=== PATIENT | female | born 1945 | race Caucasian/White ===

== ENCOUNTER 2016-12-21 23:13 | Emergency (ER) | payer MEDICARE ==
[2016-12-21] MEDS ORDERED: NS 0.9% 1000 ML* 1,000 ML IV ONE (23:26)
[2016-12-21] MEDS ORDERED: Ondansetron INJ* 2 MG/ML VIAL IV ONE (23:26)
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
[2016-12-22 00:01] LABS: Albumin 4.2 g/dL (3.2-5.2); BUN/Creatinine Ratio 25.6 (8-20); C Reactive Protein 1.55 mg/L (< 5.00); Calcium 9.1 mg/dL (8.6-10.3); EGFR African American 79.2 (>60); EGFR Non-African American 61.5 (>60); Globulin 2.6 g/dL (2-4); Hematocrit 45 % (35-47); Magnesium 2.1 mg/dL (1.9-2.7); Mean Corpuscular HGB Conc 33 g/dl (31-36); Mean Corpuscular Hemoglobin 29 pg (27-31); Mean Corpuscular Volume 87 fL (80-97); Mean Platelet Volume 9 um3 (7.4-10.4); Potassium 3.8 mmol/L (3.5-5.0); Red Blood Count 5.19 10^6/ul (4.0-5.4); Red Cell Distribution Width 13 % (10.5-15); Total Bilirubin 0.7 mg/dL (0.2-1.0); Total Protein 6.8 g/dL (6.4-8.9); White Blood Count 8.8 10^3/ul (3.5-10.8)
[2016-12-22] MEDS ORDERED: Acetaminophen TAB* 325 MG PO ONE (00:54)
[2016-12-22] MEDS ORDERED: Ondansetron ODT TAB* 4 MG PO ONE (02:02)
[2016-12-22 02:56] VITALS: BP 142/68
== END 2016-12-22 02:57 | disposition home or self-care (01) ==
LOC: ED 23:13
DX: K52.9 Noninfective gastroenteritis and colitis, unspecified (principal); I25.119 Atherosclerotic heart disease of native coronary artery with unspecified angina pectoris; I10 Essential (primary) hypertension; Z95.5 Presence of coronary angioplasty implant and graft; J44.9 Chronic obstructive pulmonary disease, unspecified; E03.9 Hypothyroidism, unspecified
CPT/HCPCS: 36415; 80053; 83605; 83690; 83735; 85025; 86140; 93005; 96361; 96374; 99283; A9270-GY; J2405

== ENCOUNTER 2017-02-11 09:46 | Emergency (ER) | payer MEDICARE ==
--- NOTE | 2017-02-11 12:20 | RAD ---
INDICATION: Worsening knee pain COMPARISON: None TECHNIQUE: AP, lateral, tunnel, and sunrise views were obtained. FINDINGS: The bony structures, joint spaces, soft tissues are normal for age.. IMPRESSION: NO SIGNIFICANT PLAIN RADIOGRAPHIC FINDINGS.
[2017-02-11 12:24] VITALS: BP 142/80
--- NOTE | 2017-02-11 14:51 | UC ---
Knee Pain HPI - HPI Summary HPI Summary: ONE WEEK AGO, BIT THREE TIMES BY INSECT ON LEFT KNEE. HAS DEVELOPED REDNESS ON KNEE WELL TENDERNESS AND FATIGUE. - History of Current Complaint Chief Complaint: UCGeneralIllness Stated Complaint: RED AREA ON LEG NAUSEA RASH Time Seen by Provider: 02/11/17 11:12 Hx Obtained From: Patient Onset/Duration: Sudden Onset, Lasting Weeks, Still Present Severity Initially: Mild Severity Currently: Mild Pain Intensity: 2 Pain Scale Used: 0-10 Numeric Character: Dull, Aching Aggravating Factor(s): Movement, Weight Bearing Associated Signs And Symptoms: Positive: Redness Able to Bear Weight: Yes - Risk Factors Septic Arthritis Risk Factor: Negative Gout Risk Factor: Negative - Allergies/Home Medications Allergies/Adverse Reactions: Allergies Allergy/AdvReac Type Severity Reaction Status Date / Time Codeine AdvReac Intermediate Nausea And Verified 02/11/17 10:00 Vomiting Home Medications: Home Medications Tetrahydrozoline HCl (Ophth) [Eye Drops] 02/11/17 [History] PMH/Surg Hx/FS Hx/Imm Hx Previously Healthy: Yes - Surgical History Surgical History: Yes Surgery Procedure, Year, and Place: Back surgeries (3) W/RESIDUAL RIGHT WEAKNESS. Implant of epidural device for pain control-recent battery change 1 1 /2 yrs ago. CARDIAC CATH W/STENTS X 4 - Family History Known Family History: Positive: Cardiac Disease - Social History Occupation: Retired Lives: With Family Alcohol Use: Occasionally Substance Use Type: None Smoking Status (MU): Never Smoked Tobacco Have You Smoked in the Last Year: No - Immunization History Most Recent Influenza Vaccination: 04/2015 Most Recent Tetanus Shot: within 10 years Most Recent Pneumonia Vaccination: NEVER Review of Systems Constitutional: Negative Skin: Rash - LEFT KNEE Eyes: Negative ENT: Negative Respiratory: Negative Cardiovascular: Negative Gastrointestinal: Negative Genitourinary: Negative Motor: Negative Neurovascular: Negative Musculoskeletal: Arthralgia, Myalgia Neurological: Negative Psychological: Negative All Other Systems Reviewed And Are Negative: Yes Physical Exam Triage Information Reviewed: Yes Appearance: Well-Appearing, No Pain Distress, Well-Nourished Vital Signs: Initial Vital Signs Temp 98.1 F 02/11/17 10:02 Pulse 71 02/11/17 10:02 Resp 16 02/11/17 10:02 BP 156/106 02/11/17 10:02 Pulse Ox 98 02/11/17 10:02 Vital Signs Reviewed: Yes Eye Exam: Normal ENT Exam: Normal ENT: Positive: Normal ENT inspection, Hearing grossly normal, TMs normal Dental Exam: Normal Neck exam: Normal Neck: Positive: Supple, Nontender, No Lymphadenopathy Respiratory Exam: Normal Respiratory: Positive: Chest non-tender, Lungs clear, Normal breath sounds, No respiratory distress, No accessory muscle use Cardiovascular Exam: Normal Cardiovascular: Positive: RRR, No Murmur, Pulses Normal Abdominal Exam: Normal Musculoskeletal: Positive: Strength Intact, ROM Intact, No Edema, Other: - INSECT BITE AND WARMTH LEFT KNEE Neurological Exam: Normal Psychological Exam: Normal Skin Exam: Normal Knee Pain Course/Dx - Differential Dx/Diagnosis Differential Diagnosis/HQI/PQRI: Cellulitis, Gout, Infection, Sprain, Strain Provider Diagnoses: INSECT BITE LEFT KNEE; CELLULITIS LEFT KNEE Discharge - Discharge Plan Condition: Stable Disposition: HOME Prescriptions: Cephalexin CAP* [Keflex CAP*] 500 mg PO TID #21 cap Patient Education Materials: Cellulitis (ED), Insect Bite or Sting (ED), Knee Pain (ED), Arthralgia (ED) Referrals: Ольга Bullock MD [Primary Care Provider] -
== END 2017-02-11 12:45 | disposition home or self-care (01) ==
LOC: UCEAST 09:46
DX: S80.262A Insect bite (nonvenomous), left knee, initial encounter (principal); W57.XXXA Bitten or stung by nonvenomous insect and other nonvenomous arthropods, initial encounter; Y93.9 Activity, unspecified; Y92.9 Unspecified place or not applicable; Z88.5 Allergy status to narcotic agent
CPT/HCPCS: 99212; G0463

== ENCOUNTER 2017-12-25 23:45 | Inpatient (IN) | payer MEDICARE ==
[2017-12-25] MEDS ORDERED: Metoclopramide IV* 5 MG/ML 2 ML VIAL ONE (23:51)
[2017-12-25] MEDS ORDERED: Iohexol 350 (CONTRAST) 200 ML MDV IV ONE (23:54)
[2017-12-25] MEDS ORDERED: Clopidogrel TAB* 75 MG PO ONE (23:56)
[2017-12-25] MEDS ORDERED: Heparin for STEMI(*) 5,000 UNITS/ML 1 ML VIAL IV ONE (23:56)
[2017-12-25] MEDS ORDERED: Ticagrelor* 90 MG TAB PO ONE (23:56)
[2017-12-25] MEDS ORDERED: Morphine VIAL* 4 MG/ML VIAL (1 ml vial) IV PRN (23:56)
[2017-12-25] MEDS ORDERED: NS 0.9% 1000 ML* 1,000 ML IV ONE (23:58)
[2017-12-26] MEDS ORDERED: Amiodarone 360 MG IVPREMIX* 360 MG/200 ML BAG IV ONE ×2 (00:05→00:19)
[2017-12-26 00:08] LABS: ABS Basophils 0 10^3/ul (0-0.2); ABS Eosinophils 0.1 10^3/ul (0-0.6); ABS Lymphocytes 1.9 10^3/ul (1.0-4.8); ABS Monocytes 0.5 10^3/ul (0-0.8); ABS Neutrophils 4.1 10^3/ul (1.5-7.7); ABS Nucleated RBC 0 10^3/ul; Eosinophil % 1.1 % (0-6); Hematocrit 39 % (35-47); Hemoglobin 13.4 g/dl (12.0-16.0); Lymphocyte % 28.8 % (25-47); Mean Corpuscular HGB Conc 34 g/dl (31-36); Mean Corpuscular Hemoglobin 30 pg (27-31); Mean Corpuscular Volume 87 fL (80-97); Mean Platelet Volume 8.2 um3 (7.4-10.4); Nucleated Red Blood Cells % 0.1; Platelet Count 207 10^3/ul (150-450); Red Blood Count 4.49 10^6/ul (4.0-5.4); Red Cell Distribution Width 13 % (10.5-15); White Blood Count 6.7 10^3/ul (3.5-10.8)
[2017-12-26 00:17] LABS: INR 0.94 (0.77-1.02)
[2017-12-26 00:26] LABS: EGFR Non-African American 60.6 (>60)
[2017-12-26] MEDS ORDERED: Bivalirudin(*) 250 MG VIAL ONE (00:28)
[2017-12-26] MEDS ORDERED: Amiodarone IV VIAL* 3 ML ONE (00:35)
[2017-12-26] MEDS ORDERED: Norepinephrine 16MCG/ML IVPRE* 4,000 MCG/250 ML BAG IV ONE (00:38)
[2017-12-26] MEDS ORDERED: Eptifibatide IV (Load dose)(*) 2 MG/ML 10 ml VIAL ONE ×2 (00:56→01:13)
[2017-12-26] MEDS ORDERED: Iohexol 350 (CONTRAST) 200 ML MDV IV ONE (01:03)
[2017-12-26] MEDS ORDERED: Ondansetron INJ* 2 MG/ML VIAL ONE (01:17)
[2017-12-26] MEDS ORDERED: Eptifibatide (*) 100 ML ONE (01:22)
[2017-12-26] MEDS ORDERED: Nitroglycerin TAB 0.4 MG* 0.4 MG TAB SL PRN (01:46)
[2017-12-26] MEDS ORDERED: Eptifibatide Infusion @ 2 mcg/kg/min, max of 15 mg/hr (CrCl >/= 50) IV SCH (02:00)
[2017-12-26] MEDS: NS 0.9% 1000 ML* 1,000 ML IV SCH ×2 (02:15→09:25)
[2017-12-26] MEDS ORDERED: LORazepam INJ* 2 MG/ML 1 ML VIAL ONE (02:52)
[2017-12-26] MEDS ORDERED: LORazepam INJ* 2 MG/ML 1 ML VIAL IV PUSH ONE (03:00)
[2017-12-26 04:05] LABS: ABS Basophils 0.1 10^3/ul (0-0.2); ABS Eosinophils 0 10^3/ul (0-0.6); ABS Monocytes 0.8 10^3/ul (0-0.8); ABS Neutrophils 15.4 10^3/ul (1.5-7.7); ABS Nucleated RBC 0 10^3/ul; Eosinophil % 0.1 % (0-6); Hematocrit 42 % (35-47); Lymphocyte % 11.1 % (25-47); Mean Corpuscular HGB Conc 33 g/dl (31-36); Mean Corpuscular Hemoglobin 30 pg (27-31); Mean Corpuscular Volume 89 fL (80-97); Mean Platelet Volume 8.9 um3 (7.4-10.4); Nucleated Red Blood Cells % 0; Platelet Count 320 10^3/ul (150-450); Red Blood Count 4.72 10^6/ul (4.0-5.4); Red Cell Distribution Width 13 % (10.5-15); White Blood Count 18.3 10^3/ul (3.5-10.8)
[2017-12-26] MEDS ORDERED: Norepinephrine 16MCG/ML IVPRE* 4,000 MCG/250 ML BAG IV SCH (05:00)
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
[2017-12-26 06:48] LABS: ABS Basophils 0 10^3/ul (0-0.2); ABS Eosinophils 0 10^3/ul (0-0.6); ABS Lymphocytes 1.1 10^3/ul (1.0-4.8); ABS Monocytes 0.7 10^3/ul (0-0.8); ABS Neutrophils 9.6 10^3/ul (1.5-7.7); ABS Nucleated RBC 0 10^3/ul; Eosinophil % 0.1 % (0-6); Hematocrit 40 % (35-47); Hemoglobin 13.9 g/dl (12.0-16.0); Mean Corpuscular HGB Conc 35 g/dl (31-36); Mean Corpuscular Hemoglobin 30 pg (27-31); Mean Corpuscular Volume 87 fL (80-97); Mean Platelet Volume 8.7 um3 (7.4-10.4); Nucleated Red Blood Cells % 0.1; Platelet Count 316 10^3/ul (150-450); Red Blood Count 4.59 10^6/ul (4.0-5.4); Red Cell Distribution Width 13 % (10.5-15); White Blood Count 11.5 10^3/ul (3.5-10.8)
[2017-12-26] MEDS ORDERED: Amiodarone 360 MG IVPREMIX* 360 MG/200 ML BAG IV SCH ×2 (07:00→16:00)
[2017-12-26 07:06] LABS: EGFR Non-African American 69.3 (>60)
[2017-12-26] MEDS ORDERED: fentaNYL* 50 MCG/ML 2 ML VIAL (100 MCG VIAL) IV SLOW PU PRN (08:57)
[2017-12-26] MEDS ORDERED: Eptifibatide (*) 100 ML IV SCH (09:00)
[2017-12-26] MEDS ORDERED: fentaNYL* 50 MCG/ML 2 ML VIAL (100 MCG VIAL) ONE (09:14)
[2017-12-26] MEDS: Ticagrelor* 90 MG TAB PO SCH ×2 (09:20→21:05)
[2017-12-26] MEDS: Aspirin 81 mg CHEW TAB* 81 MG TAB.CHEW PO SCH (09:21)
[2017-12-26] MEDS: Famotidine TAB* 20 MG PO SCH ×2 (09:21→21:05)
--- NOTE | 2017-12-26 09:37 | RAD ---
Indication: Chest pain. Single frontal view of the chest performed at 0910 hours was reviewed. Comparison is made with previous exam dated May 09, 2015. No mediastinal shift is noted. Heart is of normal size and configuration. Lung fallon appear clear. IMPRESSION: NO ACTIVE CARDIOPULMONARY DISEASE IS NOTED.
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
--- NOTE | 2017-12-26 11:48 | HP ---
CC: Dr. Jose Maria Contreras; Dr. Ольга Bullock HISTORY AND PHYSICAL: DATE OF ADMISSION: 12/26/17 CHIEF COMPLAINT: Severe chest discomfort with EKG demonstrating ST-segment elevation and anterior wa ll myocardial infarction. HISTORY OF PRESENT ILLNESS: The patient is a 72-year-old female with a known history in the past of coronary artery disease, status post stent placement in the proximal to mid right coronary artery as well as the first diagonal branch in the mid proximal LAD. She has a history of essential hypertensi on and hyperlipidemia. She was in her usual state of health until the day of admission when she was o ut dancing and developed the onset of severe chest discomfort and collapse. She reportedly did not l ose consciousness, although we do not have complete details. EMS arrival revealed ST-segment elevatio n, anterior wall myocardial infarction with reciprocal ST segment depression, inferior apically and a s such this was called to [facility] and alerted. On arrival in the emergency room, she w as still having severe chest discomfort. She was mildly lethargic in nature, but answered questions appropriately and was able to move all extremities appropriately. She was given heparin 4000 units, had already received full dose aspirin therapy and received 180 mg of Brilinta. She suffered a V-fib arrest in the emergency room for which she had very transient CPR and was shocked back to normal sin us rhythm. She became more alert and we had already explained the risks and benefits prior to her V- fib arrest, she had agreed to proceed and family was present and they understood and agreed too. As such, she was taken to the cardiovascular laboratory after a bolus of IV amiodarone was given and an 1 mg amiodarone drip per minute was started. PAST MEDICAL HISTORY: Significant for coronary artery disease as described above, essential hyperten all. Past medical history included gastroesophageal reflux, history of glaucoma, depression, hyperl ipidemia, chronic back pain for which she has an implanted stimulator and questionable history of hyp othyroidism. PAST SURGICAL HISTORY: Significant for back surgery. FAMILY HISTORY: Mother with a history reportedly in the past of COPD. Father was an alcoholic with cirrhosis and of a heart attack. SOCIAL HISTORY: She is a nonsmoker and occasionally drinks alcohol. She had 1 beer tonight when she was dancing. REVIEW OF SYSTEMS: Pertinent to proceeding to the cardiovascular laboratory. The patient has no doc umented history of stroke. The patient has no history of renal insufficiency. The patient has no he matochezia, hematemesis, or hematuria and no dye allergy. PHYSICAL EXAMINATION GENERAL: When I see her in the emergency room reveals an anxious female, in acute distress with sign ificant chest discomfort. VITAL SIGNS: Reveals blood pressure 118/77 with a pulse of 80, respirations 22, O2 saturation 97%. HEENT: Conjunctivae were pink. Sclerae clear. Mouth reveals somewhat dry mucosa from her mouth mary grace athing. NECK: Supple. No obvious increased JVP. Carotid with fair upstroke in volume. I cannot definitive ly appreciate any bruits, although it is difficult to hear in the emergency room. LUNGS: Reveals no accessory muscle usage anterior and laterally. The lung sounds are clear. HEART: Reveals a regular rate and rhythm with no significant murmur. ABDOMEN: Soft and nontender. EXTREMITIES: Without edema. Peripheral pulses are intact. Femoral pulses present without bruits. NEUROLOGIC: The patient is slightly lethargic, but does respond appropriately and does answer questi ons and moves all extremities to command with no focal abnormalities. PSYCHIATRIC: The patient with appropriate affect. DIAGNOSTIC STUDIES/LAB DATA: Laboratory results are pending. EKG from the emergency room time 2355 on 12/25/17 shows sinus rhythm, heart rate 85, CT interval is 0 .14, QRS is 0.09, QT 0.38, axis is -[address]- segment elevation in aVL, V1, V2, and s omewhat in V3 with reciprocal changes of ST segment depression in II, III, aVF of significance. OVERALL ASSESSMENT: Lis now presents in the throes of an acute ST-segment elevation anterior wall myocardial infarction. At this point in time, she had suffered ventricular fibrillation arrest and is on IV amiodarone. The risks and benefits were explained prior to proceeding to the cardiovascular laboratory and she and her family wished to proceed. She has already received 4000 units of heparin , 180 mg of Brilinta and aspirin full dose. Further management will be made pending results in the c ardiovascular laboratory. [id number]/[facility] #: [id number]
[2017-12-26] MEDS: fentaNYL* 50 MCG/ML 2 ML VIAL (100 MCG VIAL) IV SLOW PU PRN ×2 (12:55→18:13)
[2017-12-26] MEDS ORDERED: Heparin VIAL(*) 5000 UNITS/ML VIAL (FIVE THOUSAND) SUBCUT SCH (14:00)
--- NOTE | 2017-12-26 15:13 | CATH ---
CC: Dr. Jose Maria Contreras; Dr. Ольга Bullock, [facility] CARDIAC CATHETERIZATION AND INTERVENTIONAL REPORT: DATE OF PROCEDURE: 12/26/17 PROCEDURE PERFORMED: Coronary arteriography, thrombectomy, balloon angioplasty and placement of a 2.25 x 24 mm long Synergy drug-eluting stent in mid LAD, postdilated to 2.65 in the mid proximal stented area, left heart catheterization. The patient was interviewed and examined in the emergency room where the risks and benefits were explained. She understood them and wished to proceed. The patient received aspirin prior to arrival by the emergency medical services, she received 180 mg of Brilinta in the emergency room, 4000 units of heparin peripherally. APPROACH: Right femoral artery. EQUIPMENT UTILIZED: 1. Arterial sheath - 6.5-St Helenian Merit Prelude sheath. 2. Diagnostic right coronary catheter, a 5-St Helenian AL1 curve right coronary catheter, left coronary arteriography with a 6-St Helenian CLS3 curve. 3. Interventional wires, multiple 190 length All Star guidewires. 4. Thrombectomy catheter, a 6-St Helenian Pronto V4 extraction catheter. 5. Balloon angioplasty catheter to mid LAD at 2.0 x 50 mm long Emerge balloon. 6. Stent utilized a 2.25 x 24 mm long Synergy drug-eluting stent with post deployment balloon inflations with a 2.5 x 12 mm long NC Emerge balloon. CLOSURE DEVICE: A 6/7-St Helenian Mynx closure device. DESCRIPTION OF PROCEDURE: She was taken to the cardiovascular laboratory where a formal time-out was performed. She was prepped and draped in a sterile fashion. The right coronary was anesthetized with 1% lidocaine. The right femoral artery was cannulated and a 6-St Helenian introducer was placed. Diagnostic coronary arteriography was performed. Following this, the decision was made to intervene into the LAD system. An ACT was checked and found to be subtherapeutic as such an Angiomax bolus was given and Angiomax drip was started. Extraction atherectomy was performed with multiple passes followed by balloon angioplasty to the mid LAD. Of note, a second guidewire was advanced into the diagonal branch through the stent. Of note, during the catheterization the patient developed ventricular tachycardia sustained and she was successfully shocked with 200 joules. An additional 150 mg amiodarone bolus was given (she was already on an amiodarone 1 mg drip and had gotten 150 mg bolus in the emergency room). The patient was treated also with Levophed boluses and a Levophed drip was given for hypotension. Stent placement was performed followed by further extraction atherectomy, two Integrilin boluses 10 minutes apart were given and an Integrilin drip was started and the Angiomax drip was stopped. Post stent deployment balloon inflations were made. Following this, left heart catheterization was performed utilizing a 5-St Helenian angled pigtail catheter. The catheter was then pulled back across the aortic valve to recheck gradient. At the end of the case, injection was made into the right femoral sheath to assess the eligibility to utilize closure device. It was found to be acceptable for this and as such a [address] Helenian Mynx closure device was deployed with good hemostasis. The patient was transported to the intensive care unit in stable condition. The total contrast used was 200 cc of Omnipaque dye. The radiation exposure included 17.2 minutes of fluoro time, the air kerma radiation was 1020 mGy, the DAP radiation was 5549 microgray per meter squared. RESULTS: HEMODYNAMIC DATA: Left heart catheterization: Central aortic pressure recorded at 101/59 with a mean of 77, left ventricular pressure 96/left ventricular end- diastolic pressure of 17. CORONARY ARTERIOGRAPHY: A. Right coronary artery - a dominant vessel supplying a bifurcating PDA. There were several acute marginal branches as well. The prior stented areas were found to be widely patent with no evidence of significant in-stent restenosis. B. Left coronary artery: 1. Left main widely patent. 2. Left anterior descending artery. The proximal portion of the left anterior descending artery appeared to have thrombus in it and there appeared to be some haziness in the very ostium of the diagonal branch. The LAD was found to be totally occluded after the second septal school psychological examiner. 3. Circumflex artery - a nondominant vessel supplying a thin first obtuse marginal branch followed by bifurcating second obtuse marginal branch. Past this point, it continued to supply a moderate sized low lying obtuse marginal branch followed by a bifurcating shorter last obtuse marginal branch. Of note, there was an area of narrowing noted before the last low lying obtuse marginal branch which appeared to be as much as 50% to 55%. INTERVENTION INTO THE MID LAD: Successful thrombectomy balloon angioplasty and placement of a 2.25 x 24 mm Synergy drug-eluting stent postdilated with a 2.5 mm NC Emerge balloon to achieve 2.65 mm with MONICA-3 flow, no dissection seen. Of note, the distal vessel appeared to have diffuse disease in it and was small in caliber. It did not extend fully to the apical region. The prior extensive thrombus and burden present on the initial images was no longer present with mild thrombus in the proximal portion. OVERALL ASSESSMENT: Successful reconstitution of totally occluded LAD with balloon angioplasty and placement of a 2.25 x 24 mm long Synergy drug-eluting stent dilated to high pressure to obtain 2.65 mm. Extensive thrombus burden treated with thrombectomy as well as double bolus Integrilin with an Integrilin drip started to be continued for 8 to 12 hours with platelets being checked within an hour to an hour and a half after starting the drip. For now, the patient will be maintained on the Levophed and it will be weaned as can be achieved once the patient gets to the intensive care unit. Of note, a Garcia catheter was placed for more accurate urine output. Dual antiplatelet therapy is mandatory for most likely 30 months at minimum. Consideration for possible repeat cardiac catheterization during this hospitalization to assess the most proximal portion of the LAD and to make sure there has been a resolution of any thrombus left may be appropriate. We will decide that through the course of hospitalization. An echocardiogram will be obtained for LV function within the next 24-48 hours. The patient's cardiac enzymes will be cycled. Aggressive risk factor management will continue and for now the IV amiodarone will be continued and eventually weaned off once rhythm is stabilized. It should be noted the patient developed atrial fibrillation during the cardiac catheterization after she was defibrillated for her ventricular tachycardia. Hopefully, she will spontaneously convert back to sinus rhythm now that her ischemia has been improved. [id number]/[facility] #: [id number] [facility]
[2017-12-26] MEDS: Heparin VIAL(*) 5000 UNITS/ML VIAL (FIVE THOUSAND) SUBCUT SCH ×2 (16:06→21:07)
[2017-12-26] MEDS: Atorvastatin* 20 MG TAB PO SCH (17:42)
[2017-12-26] MEDS ORDERED: Ondansetron INJ* 2 MG/ML SYRINGE (from 40/20 VIAL) IV ONE (19:15)
[2017-12-26] MEDS ORDERED: Ondansetron INJ* 2 MG/ML VIAL IV SCH (20:00)
[2017-12-26] MEDS ORDERED: Ondansetron INJ* 2 MG/ML SYRINGE (from 40/20 VIAL) IV SCH (20:00)
[2017-12-26] MEDS: DORZOLAMIDE BOTH EYES SCH (21:07)
[2017-12-26] MEDS: Acetaminophen TAB* 325 MG PO PRN (21:07)
[2017-12-26] MEDS: LATANOPROST 0.005% LEFT EYE SCH (21:07)
[2017-12-26] MEDS: TIMOLOL OPTH BOTH EYES SCH (21:07)
[2017-12-26] MEDS ORDERED: Ondansetron INJ* 2 MG/ML SYRINGE (from 40/20 VIAL) IV PRN (23:44)
[2017-12-27] MEDS: Acetaminophen TAB* 325 MG PO PRN ×3 (04:52→20:47)
[2017-12-27] MEDS: Heparin VIAL(*) 5000 UNITS/ML VIAL (FIVE THOUSAND) SUBCUT SCH ×3 (05:02→20:50)
[2017-12-27 05:26] LABS: ABS Basophils 0 10^3/ul (0-0.2); ABS Eosinophils 0 10^3/ul (0-0.6); ABS Lymphocytes 1.3 10^3/ul (1.0-4.8); ABS Monocytes 0.4 10^3/ul (0-0.8); ABS Neutrophils 5.1 10^3/ul (1.5-7.7); ABS Nucleated RBC 0 10^3/ul; Eosinophil % 0.5 % (0-6); Hematocrit 36 % (35-47); Hemoglobin 12.3 g/dl (12.0-16.0); Lymphocyte % 18.8 % (25-47); Mean Corpuscular HGB Conc 35 g/dl (31-36); Mean Corpuscular Hemoglobin 30 pg (27-31); Mean Corpuscular Volume 88 fL (80-97); Mean Platelet Volume 8.8 um3 (7.4-10.4); Nucleated Red Blood Cells % 0; Platelet Count 179 10^3/ul (150-450); Red Blood Count 4.05 10^6/ul (4.0-5.4); Red Cell Distribution Width 13 % (10.5-15); White Blood Count 6.9 10^3/ul (3.5-10.8)
[2017-12-27 05:38] LABS: EGFR Non-African American 78.1 (>60)
[2017-12-27] MEDS: Sertraline* 50 MG TAB PO SCH (08:14)
[2017-12-27] MEDS: Aspirin 81 mg CHEW TAB* 81 MG TAB.CHEW PO SCH (08:14)
[2017-12-27] MEDS: Ticagrelor* 90 MG TAB PO SCH ×2 (08:14→20:49)
[2017-12-27] MEDS: Famotidine TAB* 20 MG PO SCH ×2 (08:14→20:49)
[2017-12-27] MEDS: LATANOPROST 0.005% LEFT EYE SCH ×2 (08:15→20:50)
--- NOTE | 2017-12-27 08:27 | PN ---
Progress Note - Progress Note Date of Service: 12/27/17 - [facility] f/u note Note: Pt seen and examined at bedside. Pt reports feeling better this am. Numbness of hands is improved. Denies N, V, had episode of nausea and vomiting when she stood up yesterday. Soreness in chest is improved, also has tenderness in neck area posteriorly. Active Medications Generic Name Dose Route Start Last Admin Trade Name Freq PRN Reason Stop Dose Admin Acetaminophen 650 mg 12/26/17 19:57 12/27/17 04:52 Tylenol Tab* PO 650 mg Q6H PRN Administration PAIN - MILD Aspirin 81 mg 12/26/17 09:00 12/27/17 08:14 Aspirin 81 Mg Chew Tab* PO 81 mg DAILY NNAMDI Administration Atorvastatin Calcium 20 mg 12/26/17 17:00 12/26/17 17:42 Lipitor* PO 20 mg 1700 NNAMDI Administration Dorzolamide/Timolol 1 drop 12/26/17 21:00 12/26/17 21:07 Cosopt (Nf) BOTH EYES 1 drop BEDTIME NNAMDI Administration Famotidine 20 mg 12/26/17 09:00 12/27/17 08:14 Pepcid Tab* PO 20 mg BID NNAMDI Administration Fentanyl Citrate 25 mcg 12/26/17 12:24 12/26/17 18:13 Fentanyl* IV SLOW PU 25 mcg Q4H PRN Administration PAIN - CHEST Heparin Sodium (Porcine) 5,000 units 12/26/17 14:00 12/27/17 05:02 Heparin Vial(*) SUBCUT 5,000 units Q8HR NNAMDI Administration Latanoprost 1 drop 12/26/17 21:00 12/27/17 08:15 Xalatan 0.005%* LEFT EYE 1 drop BID NNAMDI Administration Nitroglycerin 0.4 mg 12/26/17 01:46 Nitroglycerin Tab 0.4 Mg* SL Q5M PRN ANGINA Sertraline HCl 50 mg 12/27/17 09:00 12/27/17 08:14 Zoloft* PO 50 mg DAILY NNAMDI Administration Ticagrelor 90 mg 12/26/17 09:00 12/27/17 08:14 Brilinta* PO 90 mg BID NNAMDI Administration Vital Signs Temp Pulse Resp BP Pulse Ox 98 F 67 16 91/51 91 12/27/17 03:58 12/27/17 08:00 12/27/17 08:00 12/27/17 08:00 12/27/17 08:00 O/E: Pt in NAD, alert, awake HEENT: PERRLA, No JVD, mild tenderness in cervical area posteriorly Lungs: diminished air entry at bases, tenderness to palpation ant chest CVS: S1, S2+, regular, peripheral pulses 2+ b/l Abd: Soft, BS+ Ext: Normal ROM, mild weakness of rt LE, unchanged Neuro: Alert, awake, oriented X3, no focal defects Laboratory Results - last 24 hr 12/26/17 12/26/17 12/26/17 12:00 12:00 18:43 WBC RBC Hgb Hct MCV MCH MCHC RDW Plt Count MPV Neut % (Auto) Lymph % (Auto) Cross % (Auto) Eos % (Auto) Baso % (Auto) Absolute Neuts (auto) Absolute Lymphs (auto) Absolute Monos (auto) Absolute Eos (auto) Absolute Basos (auto) Absolute Nucleated RBC Nucleated RBC % Sodium Potassium Chloride Carbon Dioxide Anion Gap BUN Creatinine Est GFR ( Amer) Est GFR (Non-Af Amer) BUN/Creatinine Ratio Glucose Lactic Acid 2.7 H* Calcium Total Bilirubin AST ALT Alkaline Phosphatase Total Creatine Kinase 598 H 705 H CK-MB (CK-2) 54.3 H 66.1 H Troponin I 2.20 H* 3.64 H* Total Protein Albumin Globulin Albumin/Globulin Ratio 12/27/17 12/27/17 05:07 05:07 WBC 6.9 RBC 4.05 Hgb 12.3 Hct 36 MCV 88 MCH 30 MCHC 35 RDW 13 Plt Count 179 MPV 8.8 Neut % (Auto) 74.6 Lymph % (Auto) 18.8 L Cross % (Auto) 5.7 Eos % (Auto) 0.5 Baso % (Auto) 0.4 Absolute Neuts (auto) 5.1 Absolute Lymphs (auto) 1.3 Absolute Monos (auto) 0.4 Absolute Eos (auto) 0 Absolute Basos (auto) 0 Absolute Nucleated RBC 0 Nucleated RBC % 0 Sodium 139 Potassium 3.8 Chloride 110 Carbon Dioxide 23 Anion Gap 6 BUN 8 Creatinine 0.73 Est GFR ( Amer) 100.5 Est GFR (Non-Af Amer) 78.1 BUN/Creatinine Ratio 11.0 Glucose 117 H Lactic Acid Calcium 8.4 L Total Bilirubin 0.70 AST 60 H ALT 51 Alkaline Phosphatase 43 Total Creatine Kinase 520 H CK-MB (CK-2) 36.3 H Troponin I 4.01 H* Total Protein 5.4 L Albumin 3.3 Globulin 2.1 Albumin/Globulin Ratio 1.6 I/R: 72 y o f a/w STEMI s/p stent placement to LAD, significant thrombus, required CPR briefly, and defibrillaton, cardiogenic shock requiring Levophed, has been off since yesterday afternoon. Pt with tingling, numbness and episode of blurry vision and vomiting yesterday when she stood up, quickly resolved. Had c/o blurry vision this morning sitting up, improved Chest soreness is better, no chest pain or diaphoresis BP higher sitting up around 140 systolic No headaches, reports decreased appetite Hemodynamically stable, off O2, on RA Will hold off on neuro imaging for now. Will reassess neurological status in few hrs. Will f/u ECHO results Fentanyl d/jocelyn, c/w tylenol prn for pain D/C Garcia OOB to chair, ambulate as tolerated D/w Dr Vaca
--- NOTE | 2017-12-27 12:22 | RAD ---
Indication: Evaluate for stroke. CT of the brain was performed without IV contrast. Ventricular structures are midline. No midline shift is noted. The extra-axial spaces are unremarkable. There is no evidence of intracranial mass or hemorrhage. No other high or low density lesions are identified. Some calcifications are noted in the basal ganglia which are unchanged from previous exam. Mastoid air cells and paranasal sinuses are otherwise unremarkable. IMPRESSION: No intracranial mass or hemorrhage is noted.
[2017-12-27] MEDS ORDERED: Iohexol 350* (CONTRAST) 500 ML MDV IV ONE (12:31)
--- NOTE | 2017-12-27 12:54 | RAD ---
Indication: Evaluate for posterior circulation stroke. Contrast: Administered 80.0 ml of Contrast -- mg/ml The origins of the great vessel are unremarkable. Minimal calcific plaque is noted at the left subclavian artery regurgitation. The common carotid arteries bilaterally are normal in caliber and symmetric. No atherosclerosis is noted. The internal carotid arteries bilaterally appear widely patent. No evidence of branch occlusion is identified. No evidence of carotid artery dissection is noted. The vertebral artery origins are grossly unremarkable. They are fairly symmetric in size and caliber. No calcification is noted. Normal flow is noted in both vertebral arteries. The intracranial circulation demonstrates the intracavernous portions of the carotid arteries to be unremarkable with no aneurysmal dilatation or plaque. Normal bifurcation into A1 and M1 segments of the anterior circulation is noted. No aneurysmal dilatation or branch occlusion is identified. The posterior circulation demonstrates a patent basilar artery. The posterior cerebral arteries appears to be supplied by the posterior communicating artery bilaterally. The basilar artery bifurcates into small branches. No branch occlusion is noted. No aneurysmal dilatation is noted. No evidence of abnormal density is noted. Soft tissues of the neck are grossly unremarkable. Degenerative disc disease of the cervical spine is noted. IMPRESSION: Common carotid arteries and vertebral arteries are patent with no evidence of stenosis or dissection. Intracranial circulation demonstrates no branch occlusion. No aneurysmal dilatation is noted. Posterior cerebral artery appears to be predominantly supplied by posterior communicating arteries bilaterally.
[2017-12-27] MEDS ORDERED: NS 0.9% 1000 ML* 1,000 ML IV SCH (13:30)
--- NOTE | 2017-12-27 13:54 | ECHO ---
Patient: EBER BOYKIN [facility] Rec#: [id number] : 1945 Date: 12/27/2017 Age: 72y Height: 157.48 cm / 62.0 in Weight: 63.96 kg / 141.0 lbs Sex: F BSA: 1.65 Room#: ICU-3 Admit Date#: 12/26/2017 Type: Inpatient Referring: Renan Cole MD Reading: Ubaldo Cortez MD Lunchroom Attendant: Iza Kat RDCS CC: Ольга Bullock MD Transthoracic Echocardiogram Indication: S/P PCI, STEMI BP: 108/76 HR: 71 Rhythm: NSR Findings History: Anterior wall HI, s/p STEMI and PCI 12/26/17, CAD, HTN, HLD. Technical Comments: The study quality is fair. Completed at 0930. Left Ventricle: The left ventricular chamber size is normal. Mild concentric left ventricular hypertrophy is observed. Left ventricular systolic function is at the lower limits of normal. The estimated ejection fraction is 50-55%. with mild mid-distal anterior septal and most distal anterior wall hypokinesis. Abnormal left ventricular diastolic function is observed. There is an E to A reversal in the mitral valve flow pattern suggestive of diastolic dysfunction. Left Atrium: The left atrial chamber size is normal. Right Ventricle: Moderator Band present. The right ventricular cavity size is normal. The right ventricular global systolic function is normal. Right Atrium: The right atrial cavity size is normal. Aortic Valve: The aortic valve is trileaflet. The aortic valve leaflets are mildly thickened. There is a trace of aortic regurgitation. There is no evidence of aortic stenosis. Mitral Valve: The mitral valve leaflets are mildly thickened. There is trace to mild mitral regurgitation. There is no evidence of mitral stenosis. Tricuspid Valve: The tricuspid valve leaflets are normal. There is trace to mild tricuspid regurgitation. The right ventricular systolic pressure is estimated at 35 mmHg. There is evidence of borderline pulmonary hypertension. There is no tricuspid stenosis. Pulmonic Valve: The pulmonic valve appears normal. There is no evidence of pulmonic regurgitation. There is no pulmonic stenosis. Pericardium: There is no significant pericardial effusion. Aorta: There is no dilatation of the ascending aorta. There is no dilatation of the aortic arch. The aortic root is normal in size. Pulmonary Artery: The main pulmonary artery is not well visualized. Venous: The inferior vena cava appears normal in size. There is an approximate 50% respiratory change in the inferior vena cava dimension. Summary: There are changes noted when compared to the previous study done on 07/13/2013, the wall motion abnormality are new. Conclusions The left ventricular chamber size is normal. Mild concentric left ventricular hypertrophy is observed. The estimated ejection fraction is 50-55%. with mild mid-distal anterior septal and most distal anterior wall hypokinesis. Abnormal left ventricular diastolic function is observed. There is an E to A reversal in the mitral valve flow pattern suggestive of diastolic dysfunction. There is a trace of aortic regurgitation. There is trace to mild mitral regurgitation. There is trace to mild tricuspid regurgitation. There is evidence of borderline pulmonary hypertension. There are changes noted when compared to the previous study done on 07/13/2013, the wall motion abnormality are new. Measurements Name Value Normal Range RVIDd (AP) 2D 3 cm (0.9 - 2.6) RVDdMajor (2D) 3.3 cm (2.2 - 4.4) RAd ISD 4CH 4.3 cm (3.4 - 4.9) RA (A4C)W 3.8 cm (2.9 - 4.6) IVSd (2D) 1.2 cm (0.6 - 1) LVPWd (2D) 1.2 cm (0.6 - 1) LVIDd (2D) 3.6 cm (3.6 - 5.4) LVIDs (2D) 2.4 cm - LV FS (2D) 35 % (25 - 45) Aortic Annulus 2.1 cm (1.4 - 2.6) Ao root diameter (2D) 2.9 cm (2.1 - 3.5) Ascending Ao 3.3 cm (2.1 - 3.4) Aortic arch 2.6 cm (1.8 - 3.4) LA dimension (AP) 2D 2.9 cm (2.3 - 3.8) LAd ISD 4CH 4.7 cm (2.9 - 5.3) LA ISD 4CH W 3.5 cm (2.5 - 4.5) Name Value Normal Range LA ESV SP 4CH (A/L) 40 ml - LA ESV SP 2CH (A/L) 56 ml - LA ESV BP (A/L) 48 ml - LA ESV BP (A/L) index 29 ml/m2 - LA ESV SP 4CH (MOD) 37 ml - LA ESV SP 2CH (MOD) 53 ml - Name Value Normal Range MV E-wave Vmax 0.58 m/sec - MV deceleration time 254.9 msec - MV A-wave Vmax 0.7 m/sec - MV E:A ratio 0.8 ratio - LV septal e' Vmax 0.07 m/sec - LV lateral e' Vmax 0.07 m/sec - LV E:e' septal ratio 8.29 ratio - LV E:e' lateral ratio 8.29 ratio - Name Value Normal Range AV Vmax 1.24 m/sec - AV VTI 28.5 cm - AV peak gradient 6.17 mmHg - AV mean gradient 3.56 mmHg - LVOT Vmax 1.1 m/sec - LVOT VTI 24.5 cm - LVOT peak gradient 4.86 mmHg - LVOT mean gradient 2.66 mmHg - WILBERT Vmax 0.8 m/sec - Name Value Normal Range TR Vmax 2.6 m/sec - TR peak gradient 27 mmHg - RAP 8 mmHg - RVSP 35 mmHg - IVC diameter 2.03 cm - Name Value Normal Range PV Vmax 0.62 m/sec - PV peak gradient 1.54 mmHg -
[2017-12-27] MEDS ORDERED: Captopril TAB* 12.5 MG PO SCH (14:00)
[2017-12-27] MEDS: Atorvastatin* 20 MG TAB PO SCH (18:32)
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
[2017-12-27] MEDS: DORZOLAMIDE BOTH EYES SCH (20:49)
[2017-12-27] MEDS: TIMOLOL OPTH BOTH EYES SCH (20:49)
[2017-12-28] MEDS: Acetaminophen TAB* 325 MG PO PRN ×3 (02:33→19:30)
[2017-12-28] MEDS: Heparin VIAL(*) 5000 UNITS/ML VIAL (FIVE THOUSAND) SUBCUT SCH ×3 (05:36→21:17)
[2017-12-28 06:19] LABS: EGFR Non-African American 72.4 (>60)
[2017-12-28] MEDS: Ticagrelor* 90 MG TAB PO SCH ×2 (07:54→21:17)
[2017-12-28] MEDS: Famotidine TAB* 20 MG PO SCH ×2 (07:54→21:16)
[2017-12-28] MEDS: Sertraline* 50 MG TAB PO SCH (07:55)
[2017-12-28] MEDS: Aspirin 81 mg CHEW TAB* 81 MG TAB.CHEW PO SCH (07:56)
[2017-12-28] MEDS: LATANOPROST 0.005% LEFT EYE SCH ×2 (07:56→21:17)
--- NOTE | 2017-12-28 08:22 | PN ---
Progress Note - Progress Note Date of Service: 12/28/17 - [facility] f/u note Note: Pt seen and examined at bedside, reports feelig better, still has soreness in chest. ''Sea sickness'' feeling and blurry vision have improved. Has not been feeling dizzi when she stands up. Active Medications Generic Name Dose Route Start Last Admin Trade Name Freq PRN Reason Stop Dose Admin Acetaminophen 650 mg 12/26/17 19:57 12/28/17 02:33 Tylenol Tab* PO 650 mg Q6H PRN Administration PAIN - MILD Aspirin 81 mg 12/26/17 09:00 12/28/17 07:56 Aspirin 81 Mg Chew Tab* PO 81 mg DAILY NNAMDI Administration Atorvastatin Calcium 20 mg 12/26/17 17:00 12/27/17 18:32 Lipitor* PO 20 mg 1700 NNAMDI Administration Dorzolamide/Timolol 1 drop 12/26/17 21:00 12/27/17 20:49 Cosopt (Nf) BOTH EYES 1 drop BEDTIME NNAMDI Administration Famotidine 20 mg 12/26/17 09:00 12/28/17 07:54 Pepcid Tab* PO 20 mg BID NNAMDI Administration Heparin Sodium (Porcine) 5,000 units 12/26/17 14:00 12/28/17 05:36 Heparin Vial(*) SUBCUT 5,000 units Q8HR NNAMDI Administration Latanoprost 1 drop 12/26/17 21:00 12/28/17 07:56 Xalatan 0.005%* LEFT EYE 1 drop BID NNAMDI Administration Nitroglycerin 0.4 mg 12/26/17 01:46 Nitroglycerin Tab 0.4 Mg* SL Q5M PRN ANGINA Sertraline HCl 50 mg 12/27/17 09:00 12/28/17 07:55 Zoloft* PO 50 mg DAILY NNAMDI Administration Ticagrelor 90 mg 12/26/17 09:00 12/28/17 07:54 Brilinta* PO 90 mg BID NNAMDI Administration Vital Signs Temp Pulse Resp BP Pulse Ox 98.6 F 60 16 118/76 95 12/28/17 07:17 12/28/17 07:00 12/28/17 08:00 12/28/17 07:00 12/28/17 07:00 O/E: Pleasant elderly female in NAD HEENT: PERRLA, No JVD, lt eye mild ptosis Lungs: Clear to auscultation b/l CVS: S1, S2+, regular Abd: Soft, BS+ Ext: No edema Skin: no rash Neuro: No focal defecits Laboratory Results - last 24 hr 12/27/17 12/28/17 09:25 05:44 Sodium 140 Potassium TNP Chloride 112 H Carbon Dioxide 24 Anion Gap 4 BUN 7 Creatinine 0.78 Est GFR ( Amer) 93.1 Est GFR (Non-Af Amer) 72.4 BUN/Creatinine Ratio 9.0 Glucose 97 Calcium 8.1 L TSH 4.40 Free T4 0.74 Free T3 2.40 L I/R: 72 y o f a/w STEMI s/p stent placement to LAD, significant thrombus, required CPR briefly, and defibrillaton, cardiogenic shock requiring Levophed briefly, hemodynamically stable currently Pt had tingling, numbness and episode of blurry vision, vomiting, anisocoria yesterday, resolved. Neuro consult appreciated CT brain and CTA head were unrevealing of acute event Chest soreness is better, no chest pain or diaphoresis Hemodynamically stable, off O2, on RA ECHO results reviewed- Mild wall motion abnormalities, normal EF, diastolic dysfunction OOB to chair, ambulate as tolerated Might be able to transfer too regular floor if no other cardiac intervention is planned
[2017-12-28] MEDS: Atorvastatin* 20 MG TAB PO SCH (19:30)
[2017-12-28] MEDS: TIMOLOL OPTH BOTH EYES SCH (21:17)
[2017-12-28] MEDS: DORZOLAMIDE BOTH EYES SCH (21:17)
[2017-12-29] MEDS: Heparin VIAL(*) 5000 UNITS/ML VIAL (FIVE THOUSAND) SUBCUT SCH (05:51)
[2017-12-29 06:21] LABS: EGFR Non-African American 65.6 (>60)
--- NOTE | 2017-12-29 07:05 | PN ---
NEUROLOGICAL FOLLOWUP NOTE: DATE OF SERVICE: 12/28/2017. PATIENT OF: Dr. Monson. HISTORY: This is neurological followup for this 72-year-old woman who has had cardiac V-fib arrest with significant hypotension as well with course complicated by acute atrial fibrillation. She is feeling much better today. MEDICATIONS: Her medications include: 1. Aspirin 81 mg daily. 2. Lipitor 80 mg daily. 3. Pepcid 20 mg b.i.d. 4. Heparin 5000 units q.8 hours. 5. Zoloft 50 mg daily. 6. Brilinta 90 mg b.i.d. 7. Zoloft 50 mg daily. PHYSICAL EXAMINATION: Temperature 98.4, pulse 70, respiratory rate 20, blood pressure 149/85. She is alert and oriented with normal speech and comprehension. Cranial nerves II through XII were normal other than she had a left ptosis, which I discussed with her sister and mother and both of them say that she has had a slight ptosis in left eye before but this looks significantly worse. She also has a left esotropia which is new and she has double vision going off to the left. When she smiles, she does not depress her left angularis rachid muscle as well as the right, but this is probably chronic. It was quite subtle. Strength appeared intact other than her right leg which is chronically weak secondary to back problem. Finger-to- nose on the right was intact, on the left there is some past pointing. When she lock she has some foot droop on the right due to her chronic back problems, but she moved her left leg clumsily when she walked and this may be new. She still complains of some sea sickness and blurring in her left eye but not her right. The funduscopic exam was normal. 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 A repeat CT scan planned for tomorrow may and or may not curing pickling packer a stroke. MRI scan could well curing pickling packer the stroke, but she cannot have that due to her spinal stimulator. This stroke is most likely from her cardiac arrest and I would not treat with anything other than her antiplatelet agents. She did have arrhythmias, but this was in the acute setting. If the fractionation plant supervisor and front desk assistant thought that this is likely to be on an ongoing basis, then anticoagulation would be a consideration beginning in the next few days' time, but this is most likely acute secondary to cardiac ischemia. Thank you for sharing her case. [id number]/[facility] #: [id number] DELVIS
[2017-12-29] MEDS: LATANOPROST 0.005% LEFT EYE SCH ×2 (08:59→20:18)
[2017-12-29] MEDS: Aspirin 81 mg CHEW TAB* 81 MG TAB.CHEW PO SCH (09:01)
[2017-12-29] MEDS: Sertraline* 50 MG TAB PO SCH (09:01)
[2017-12-29] MEDS: Famotidine TAB* 20 MG PO SCH ×2 (09:01→20:18)
[2017-12-29] MEDS: Ticagrelor* 90 MG TAB PO SCH (09:01)
[2017-12-29] MEDS: Acetaminophen TAB* 325 MG PO PRN (09:06)
[2017-12-29] MEDS ORDERED: Clopidogrel TAB* 300 MG PO ONE (10:24)
--- NOTE | 2017-12-29 11:44 | RAD ---
INDICATION: CVA. COMPARISON: Correlation is made with a prior study from December 27, 2017. TECHNIQUE: Contiguous axial sections of the brain were obtained from the skull base to the vertex without contrast. FINDINGS: The ventricles, cisterns and sulci are enlarged consistent with age-related atrophy. No significant focal abnormality or mass effect is seen. There is no evidence for hemorrhage. No significant focal osseous abnormality is seen. The visualized portion of the paranasal sinuses and mastoid air cells appear clear. IMPRESSION: NO EVIDENCE FOR GROSS ACUTE INFARCT, MASS EFFECT OR HEMORRHAGE.
[2017-12-29] MEDS: Ondansetron 40 MG VIAL* 2 MG/ML 20 ML VIAL IV PRN (12:03)
[2017-12-29] MEDS: Metoprolol Tartrate TAB* 25 MG PO SCH ×2 (12:30→20:45)
[2017-12-29] MEDS: Atorvastatin* 20 MG TAB PO SCH (17:22)
[2017-12-29] MEDS: DORZOLAMIDE BOTH EYES SCH (20:18)
[2017-12-29] MEDS: TIMOLOL OPTH BOTH EYES SCH (20:18)
[2017-12-30] MEDS: Ondansetron 40 MG VIAL* 2 MG/ML 20 ML VIAL IV PRN (01:37)
[2017-12-30] MEDS: Sertraline* 50 MG TAB PO SCH (09:03)
[2017-12-30] MEDS: Famotidine TAB* 20 MG PO SCH ×2 (09:03→20:06)
[2017-12-30] MEDS: Aspirin 81 mg CHEW TAB* 81 MG TAB.CHEW PO SCH (09:03)
[2017-12-30] MEDS: Clopidogrel TAB* 75 MG PO SCH (09:03)
[2017-12-30] MEDS: LATANOPROST 0.005% LEFT EYE SCH ×2 (09:04→20:07)
[2017-12-30] MEDS: Metoprolol Tartrate TAB* 25 MG PO SCH ×2 (09:04→20:06)
[2017-12-30] MEDS: Acetaminophen TAB* 325 MG PO PRN ×2 (13:39→20:06)
[2017-12-30] MEDS: Atorvastatin* 20 MG TAB PO SCH (17:31)
[2017-12-30] MEDS: DORZOLAMIDE BOTH EYES SCH (20:07)
[2017-12-30] MEDS: TIMOLOL OPTH BOTH EYES SCH (20:07)
[2017-12-31] MEDS: Acetaminophen TAB* 325 MG PO PRN ×4 (01:44→21:27)
[2017-12-31] MEDS: Metoprolol Tartrate TAB* 25 MG PO SCH ×2 (08:42→19:51)
[2017-12-31] MEDS: Clopidogrel TAB* 75 MG PO SCH (08:42)
[2017-12-31] MEDS: Famotidine TAB* 20 MG PO SCH ×2 (08:42→19:51)
[2017-12-31] MEDS: Aspirin 81 mg CHEW TAB* 81 MG TAB.CHEW PO SCH (08:42)
[2017-12-31] MEDS: Sertraline* 50 MG TAB PO SCH (08:43)
[2017-12-31] MEDS: LATANOPROST 0.005% LEFT EYE SCH ×2 (08:44→19:51)
--- NOTE | 2017-12-31 09:07 | PN ---
NEUROLOGICAL FOLLOWUP: DATE OF SERVICE: PATIENT OF: Dr. Cole. HISTORY: This is a neurological followup on this 72-year-old woman with focal neurological deficits. She is feeling better overall and notes that her eye is feeling better and she is a little bit more stable. She has no headache. MEDICATIONS: Medicines Include: 1. Aspirin 81 mg daily. 2. Lipitor 80 mg daily. 3. Plavix 75 mg daily. 4. Eyedrops. 5. Pepcid 20 mg b.i.d. 6. Lopressor 25 b.i.d. 7. Glycerin p.r.n. 8. Zofran p.r.n. 9. Zoloft 50 mg daily. PHYSICAL EXAMINATION: Temperature 98.1, pulse 74, respirations 17, blood pressure 121/61. She is alert and oriented with normal speech and comprehension. Cranial nerves II through XII reflect a left ptosis, which is significantly better and a milder left esotropia. Umwhad-ox-gczr is slightly clumsy on the right side and with moderate past pointing on the left, although better than before. Strength is 5/5 other than the right foot, which is weak. Strength is unchanged. DIAGNOSTIC STUDIES/LAB DATA: Her repeat CT scan showed no new findings. No evidence of an acute stroke. ASSESSMENT AND PLAN: I discussed with Lis that clinically she is improving that it is possible that she has had some focal ischemia that is small stroke, possibly cerebellar that is not picked up on CT scan, but she will be expected to continue to make improvement. She is on statins and dual platelet therapy and I have no further recommendations at this time. Please contact me for problems. Thank you for sharing her case. [id number]/[facility] #: [id number] DELVIS
[2017-12-31] MEDS ORDERED: Docusate CAP* 100 MG PO PRN (12:03)
[2017-12-31] MEDS: Atorvastatin* 20 MG TAB PO SCH (18:02)
[2017-12-31] MEDS: TIMOLOL OPTH BOTH EYES SCH (19:50)
[2017-12-31] MEDS: DORZOLAMIDE BOTH EYES SCH (19:50)
[2018-01-01] MEDS: Acetaminophen TAB* 325 MG PO PRN ×2 (03:55→09:19)
[2018-01-01] MEDS: LATANOPROST 0.005% LEFT EYE SCH (09:18)
[2018-01-01] MEDS: Metoprolol Tartrate TAB* 25 MG PO SCH (09:19)
[2018-01-01] MEDS: Famotidine TAB* 20 MG PO SCH (09:19)
[2018-01-01] MEDS: Sertraline* 50 MG TAB PO SCH (09:20)
[2018-01-01] MEDS: Clopidogrel TAB* 75 MG PO SCH (09:20)
[2018-01-01] MEDS: Aspirin 81 mg CHEW TAB* 81 MG TAB.CHEW PO SCH (09:20)
[2018-01-01 12:20] VITALS: BP 128/60
--- NOTE | 2018-01-01 12:52 | DS ---
CC: Dr. Cole; Dr. Ольга Bullock * DATE OF ADMISSION: 12/26/2017. DATE OF DISCHARGE: 01/01/2018. LICENSING ANALYST: Dr. Cole. PRIMARY CARE PHYSICIAN: Dr. Ольга Bullock. DISCHARGE DIAGNOSES: Anterior wall ST elevation infarct, VF arrest, intolerance of Brilinta, hypertension, prior coronary artery stenting, hyperlipidemia, CVA. PROCEDURES: Cardiac catheterization, stent placement, Dr. Cole, right femoral approach, 2.25 x 24 Synergy drug-eluting stent mid LAD, echocardiogram. CONSULTATIONS: CT brain consultation with Neurology, Dr. Alexis; consultation with Dr. Monson; [facility] [employer] [facility]. CONDITION ON DISCHARGE: Improved. DISPOSITION: Transfer to [facility] for short-term rehab. DIET: Cardiac. MEDICATIONS: 1. Aspirin 81 mg daily. 2. Lipitor 80 mg daily. 3. Plavix 75 mg daily. 4. Colace 100 mg daily prn. 5. Cosopt eye drops one drop each eye at bedtime. 6. Pepcid 20 mg b.i.d. 7. Xalatan 0.005% one drop left eye b.i.d. 8. Toprol XL 50 mg daily. 9. Nitroglycerin 0.4 sublingual prn. 10. Zoloft 50 mg daily. ACTIVITY: To participate in rehab. FOLLOW-UP: Follow-up appointment with Dr. Bullock, to be scheduled. For ongoing care with Dr. Cole, Thursday, January 06 at 3:20 p.m., [facility]. HISTORY: See history and physical. LABORATORY DATA/IMAGING STUDIES: Post PCI CBC remains stable with a hemoglobin of 12.3, hematocrit 36, normal platelet count on 12/27/2017. Chemistry panel on 12/29/2017, normal electrolytes, creatinine 0.85, random blood sugar 107. Her troponin peaked at 4.01 consistent with a very small infarct. BNP was 20, normal. Total cholesterol 140, triglycerides 105, LDL 71, HDL 47.8. Transthoracic echo post revascularization reported LVEF of 50 to 55 percent with mild LVH, with mid distal anterior septal and anterior hypokinesis. CT demonstrated no intracranial mass or hemorrhage or infarct. The great vessels were unremarkable and the carotids had no stenosis. Vertebral arteries were patent without stenosis or dissection. Intracranial circulation was unremarkable. EKG on December 29 demonstrated sinus rhythm, loss of R wave in V2, V3 with T-wave inversion in V1 through V4 consistent with her septal infarct. HOSPITAL COURSE: She presented with acute anterior wall ST elevation infarct and VF arrest times two from which she was resuscitated. Cardiac cath by Dr. Cole demonstrated LAD thrombus followed by occlusion, the LAD was revascularized and stented. The proximal thrombus dissipated, post revascularization she had no recurrence of angina, had no arrhythmias, had no heart failure. By enzymes she had a very small infarct. She was found to have had a CVA on clinical rounds with negative CT imaging likely due to hypoperfusion from her VF arrest times two. This is gradually improving. She is manifesting gait instability and dizziness. She will be transferred to [facility] for short-term rehab before discharge to home. She was intolerant of Brilinta because of dyspnea, is tolerating Plavix. She is being discharged on dual antiplatelet therapy, beta blockade, and high dose statin. She has a wound check follow-up with Dr. Cole next week. She will continue follow-up with Dr. Bullock as previously. On the day of discharge, she is asymptomatic and is stable, still has dizziness. Her blood pressure today is 105/66, heart rate in the 60s, sinus rhythm. Exam is unremarkable. Her groin site is stable. [id number]/[facility] #: [id number] MTDD
[2018-01-02] MEDS ORDERED: Metoprolol Succinate XL TAB* 50 MG PO SCH (09:00)
== END 2018-01-01 13:40 | DRG 246 ==
LOC: ED 23:45 → ICU 12-26 00:25 → MEDTELE 12-29 13:17
PROVIDERS: ADMIT Internal Medicine Cardiovascular Disease; ATTEND Internal Medicine Cardiovascular Disease
PROC: 02C03ZZ Extirpation of Matter from Coronary Artery, One Artery, Percutaneous Approach (ICD-10-PCS; 2017-12-26)
PROC: 4A023N7 Measurement of Cardiac Sampling and Pressure, Left Heart, Percutaneous Approach (ICD-10-PCS; 2017-12-26)
PROC: B2111ZZ Fluoroscopy of Multiple Coronary Arteries using Low Osmolar Contrast (ICD-10-PCS; 2017-12-26)
PROC: 5A2204Z Restoration of Cardiac Rhythm, Single (ICD-10-PCS; 2017-12-26)
PROC: 027034Z Dilation of Coronary Artery, One Artery with Drug-eluting Intraluminal Device, Percutaneous Approach (ICD-10-PCS; principal; 2017-12-26 00:10)
DX: I21.09 ST elevation (STEMI) myocardial infarction involving other coronary artery of anterior wall (principal); I49.01 Ventricular fibrillation; R40.20 Unspecified coma; I63.9 Cerebral infarction, unspecified; I46.9 Cardiac arrest, cause unspecified; G81.91 Hemiplegia, unspecified affecting right dominant side; I95.9 Hypotension, unspecified; E03.9 Hypothyroidism, unspecified; I25.10 Atherosclerotic heart disease of native coronary artery without angina pectoris; E78.00 Pure hypercholesterolemia, unspecified; I10 Essential (primary) hypertension; K21.9 Gastro-esophageal reflux disease without esophagitis; H40.9 Unspecified glaucoma; F32.9 Major depressive disorder, single episode, unspecified; F41.9 Anxiety disorder, unspecified; F43.10 Post-traumatic stress disorder, unspecified; G89.29 Other chronic pain; E78.5 Hyperlipidemia, unspecified; I48.91 Unspecified atrial fibrillation; Z96.89 Presence of other specified functional implants; R29.701 NIHSS score 1; T81.89XA Other complications of procedures, not elsewhere classified, initial encounter; T50.995A Adverse effect of other drugs, medicaments and biological substances, initial encounter; Z88.5 Allergy status to narcotic agent; Z95.5 Presence of coronary angioplasty implant and graft; Z82.49 Family history of ischemic heart disease and other diseases of the circulatory system; Z72.89 Other problems related to lifestyle; Z83.6 Family history of other diseases of the respiratory system; Z81.1 Family history of alcohol abuse and dependence; Z83.49 Family history of other endocrine, nutritional and metabolic diseases; Z86.73 Personal history of transient ischemic attack (TIA), and cerebral infarction without residual deficits; Z79.02 Long term (current) use of antithrombotics/antiplatelets; Z79.82 Long term (current) use of aspirin; Y83.8 Other surgical procedures as the cause of abnormal reaction of the patient, or of later complication, without mention of misadventure at the time of the procedure
CPT/HCPCS: 36415; 70450; 70496; 70498; 71045; 80048; 80053; 80061; 82550; 82553; 83605; 83721; 83735; 83880; 84439; 84443; 84481; 84484; 85025; 85610; 85730; 87641; 93005; 93306; 99285; A9270-GY; C1725; C1757; C1760; C1769; C1876; C1887; C9606-LD; G8978-GP-CJ; G8979-GP-CH; G8987-GO-CK; G8988-GO-CI; G8989-GO-CI; J0282; J0583; J1327; J1644; J2060; J2270; J2405; J2765; J3010; Q9967

== ENCOUNTER 2018-03-26 11:23 | Emergency (ER) | payer MEDICARE ==
--- OUTSIDE RECORDS SUMMARY | 2018-03-26 11:32 | XMS REPORT ---
:1945 External Reference #:[id number] Author Organization [facility] Address [address] [place] [address] [place] [address] Phone [phone] Care Team Providers Name Role Phone Ольга Bullock MD Primary Care Physician Unavailable Payers Type Date Identification Payment Provider Subscriber Numbers Health Maintenance Effective: Policy Number: [employer] Medicare Lis Jones (HMO) 08/17/2012 [id number] [employer] Number: [id number] [address] [address] PayID: [id number] [place] [address] Problems Date Description Provider Status Onset: 07/18/2013 Coronary atherosclerosis Jose Maria Contreras M.D., Active KARSTEN RAMON Onset: 11/25/2013 Coronary arteriosclerosis Jose Maria Contreras M.D., Active TRISTEN, KARSTEN Onset: 12/03/2015 Essential hypertension Jose Maria Contreras M.D., Active KARSTEN RAMON Onset: 01/06/[address] segment elevation Renan Cole M.D., TRISTEN, Active myocardial infarction involving [facility] left anterior descending coronary artery Onset: 01/06/2018 Encounter for planned Renan Cole M.D., TRISTEN, Active postprocedural wound closure [facility] Onset: 02/01/2018 Cardiac arrest due to cardiac Jose Maria Contreras M.D., Active disorder KARSTEN RAMON Social History Type Date Description Comments Marital Status Lives With Occupation Retired Cigarette Use Never Smoked Cigarettes ETOH Use Occasionally consumes alcohol Smoking Patient has never smoked Pt was exposed to secondhand smoke when mother and father smoked cigarettes. Recreational Drug Use Denies Drug Use Daily Caffeine Consumes on average 2 cups of Hot tea in the winter and regular coffee per day Ice tea in the summer Exercise Type/Frequency Exercises regularly Allergies, Adverse Reactions, Alerts Date Description Reaction Status Severity Comments 07/18/2013 Codeine nausea, "sea sick" active 12/27/2014 Beta Adrenergic active dizziness x 2 Blockers agents per PCP 12/26/14 Medications Medication Date Status Form Strength Qnty SIG Indications Ordering Provider Clopidogrel 02/18 Active Tablets 75mg 30tab 1 by mouth Jose Maria Bisulfate /2017 s every day Lang Contreras M.D., [facility], KARSTEN Dorzolamide 12/02 Active Solution 22.3-6.8m 1 gtt both Jose Maria HCL/Timolol /2015 g/ml eyes Lang Contreras M.D., [facility] KARSTEN Aspirin Active Tablets DR 81mg 30tab 1 po qd Unknown /0000 s Latanoprost Active Solution 0.005% 1 gtt left Unknown /0000 eye. when remembers Sertraline HCL Active Tablets 100mg 1/2 by mouth Unknown /0000 every day per pt Toprol XL Active Tablets ER 50mg 1 by mouth Unknown /0000 24HR every day Nitrostat Active Tablets Sub 0.4mg one sl q5min Unknown /0000 up to 3 doses as needed Colace Active Capsules 100mg 1 tab by Unknown /0000 mouth 2-3 times a day as needed Acetaminophen Active Tablets 500mg 2 by mouth Unknown /0000 twice a day Xalatan Active Solution 0.005% 1 drop right Unknown /0000 eye at bedtime Ranitidine HCL Active Tablets 150mg take one Unknown /0000 tablet by mouth twice a day Atorvastatin Active Tablets 20mg take 1 Unknown Calcium /0000 tablet at bedtime Metoprolol Active Tablets ER 50mg 30tab 1 by mouth Jose Maria Succinate ER /0000 24HR s every day Lang Contreras M.D., TRISTEN, KARSTEN Clopidogrel 10/19 Hx Tablets 75mg 30tab 1 by mouth Jose Maria Bisulfate /2016 s every day Lang Contreras 02/18 Joshua, [facility] Olsen Atenolol 12/13 Hx Tablets 25mg 30tab 1 by mouth Jose Maria /2014 s every day Lang Contreras 12/19 Joshua, [facility], KARSTEN Metoprolol 12/04 Hx Tablets ER 25mg 90tab 1 po qd 414.01 Contreras, Succinate 24HR s Jose Maria Croft 12/04 , [facility], [place] Metoprolol 12/04 Hx Tablets ER 25mg 90tab 1 by mouth 414.01 Jose Maria Succinate 24HR s every day Lang Contreras, 12/27 Joshua, [facility], KARSTEN Lipitor Hx Tablets 20mg 30tab one tab po Unknown /0000 s qhs - 11/18 Clopidogrel Hx Tablets 75mg 90tab 1 tab by Jose Maria /0000 s mouth every - Ben, 09/05 MTrini, [facility], KARSTEN Zoloft Hx 100mg One and one Crepet, /0000 half tablets MD Ольга - daily 09/05 Metoprolol Hx Tablets ER 25mg 90tab 1 po qd Unknown Succinate ER / 24HR s - 09/05 Shaw Thyroid Hx Tablets 30mg 60tab 1 po qd Crepet, /0000 s MD Ольга - 09/05 Ranitidine HCL Hx Capsules 150mg 60cap 1 po bid Unknown /0000 s - 12/31 Timoptic 00/00 Hx Unknown /0000 - 11/18 Timolol Maleate 00/00 Hx One gtt qAM Unknown /0000 OU - 11/18 Meloxicam Hx Tablets 7.5mg 30tab 1 po qd Unknown /0000 s - 09/05 Atorvastatin 00 Hx Tablets 80mg take 1 Unknown Calcium /0000 tablet at - bedtime 02/01 Multi Vitamin 00/00 Hx Tablets 1 tab off Unknown Daily /0000 and on - 12/07 Tylenol 00 Hx Tablets ER 650mg 2 by mouth Unknown Arthritis Pain /0000 every 8 - hours as 10/09 Famotidine 00 Hx Tablets 20mg 1 by mouth Unknown /0000 twice daily - 02/01 Maalox Advanced 00/ Hx Suspension 400-400-4 30 Unknown Maximum /0000 0mg/5ML milliliters Strength - every 6 06/18 hours needed indigestion Simethicone 00 Hx prn Unknown - 02/01 Xanax 00 Hx Tablets 0.25mg one by mouth Unknown up to three - times daily 02/01 as needed for anxiety Medications Administered in Office Medication Date Status Form Strength Qnty SIG Indications Ordering Provider Inj, Administered Injection Helena Regadenoson, 018 Hays, 0.1 MG M.D. Technetium TC Administered Injection Helena 99M 018 Hays, Tetrofosmin, M.D. Per Unit Dose Up To 40 Millicuries Technetium TC Administered Injection Helena 99M 018 Deborah, Tetrofosmin, M.D. Per Unit Dose Up To 40 Millicuries Vital Signs Date Vital Result Comment 02/01/2018 Height 62 inches 5'2" Weight 139.00 lb Heart Rate 60 /min BP Systolic Sitting 138 mmHg Efra reg cuff BP Diastolic Sitting 78 mmHg Efra reg cuff BP Systolic Standing 132 mmHg Efra reg cuff BP Diastolic Standing 70 mmHg Efra reg cuff BMI (Body Mass Index) 25.4 kg/m2 01/21/2018 Heart Rate 62 /min BP Systolic 150 mmHg BP Diastolic 62 mmHg Respiratory Rate 18 /min Body Temperature 97.0 F O2 % BldC Oximetry 97 % 01/06/2018 Height 61 inches 5'1" Weight 141.00 lb w/ shoes Heart Rate 74 /min reg BP Systolic Sitting 92 mmHg Rue, lg cuff BP Diastolic Sitting 60 mmHg Rue, lg cuff BP Systolic Standing 90 mmHg Rue BP Diastolic Standing 60 mmHg Rue Respiratory Rate 16 /min BMI (Body Mass Index) 26.6 kg/m2 Ejection Fraction 50-55% as of 12/2017 echo 12/23/2017 Height 61 inches 5'1" Weight 137.00 lb Heart Rate 68 /min BP Systolic Sitting 155 mmHg lue reg cuff BP Diastolic Sitting 84 mmHg lue reg cuff BP Systolic Standing 146 mmHg lue reg cuff BP Diastolic Standing 82 mmHg lue reg cuff Respiratory Rate 16 /min BMI (Body Mass Index) 25.9 kg/m2 Ejection Fraction 55% 07/13/2013 echo 12/02/2016 Height 61 inches 5'1" Weight 153.00 lb with shoes Heart Rate 70 /min BP Systolic Sitting 128 mmHg Rue reg cuff BP Diastolic Sitting 90 mmHg Rue reg cuff BP Systolic Standing 130 mmHg Rue reg cuff BP Diastolic Standing 92 mmHg Rue reg cuff Respiratory Rate 17 /min BMI (Body Mass Index) 28.9 kg/m2 Ejection Fraction 55% date 07/13/13 ECHO 12/03/2015 Height 61 inches 5'1" Weight 152.00 lb with shoes BP Systolic Sitting 132 mmHg LA reg cuff BP Diastolic Sitting 70 mmHg LA reg cuff BP Systolic Standing 124 mmHg LA reg cuff BP Diastolic Standing 70 mmHg LA reg cuff BMI (Body Mass Index) 28.7 kg/m2 12/04/2014 Height 61 inches 5'1" Weight 150.00 lb w/ shoes Heart Rate 64 /min reg BP Systolic 132 mmHg Ra, reg cuff BP Diastolic 78 mmHg Ra, reg cuff BP Systolic Sitting 120 mmHg Ra BP Diastolic Sitting 70 mmHg Ra Respiratory Rate 18 /min BMI (Body Mass Index) 28.3 kg/m2 11/25/2013 Height 61 inches 5'1" Weight 143.00 lb no shoes Heart Rate 72 /min BP Systolic Sitting 98 mmHg LA, reg cuff BP Diastolic Sitting 62 mmHg LA, reg cuff BP Systolic Standing 96 mmHg LA BP Diastolic Standing 70 mmHg LA Respiratory Rate 14 /min BMI (Body Mass Index) 27.0 kg/m2 07/18/2013 Height 60.5 inches 5'0.50" Weight 145.00 lb Heart Rate 62 /min regular BP Systolic Sitting 112 mmHg LA, regular cuff BP Diastolic Sitting 62 mmHg LA, regular cuff BP Systolic Standing 96 mmHg LA BP Diastolic Standing 52 mmHg LA Respiratory Rate 16 /min BMI (Body Mass Index) 27.8 kg/m2 Results Test Date Test Result H/L Range Note Laboratory test finding 02/02/2013 Creatine Kinase 59 U/L 0-200 CBC No Diff 02/02/2013 White Blood Count 4.9 10^3/uL 4.8-10.8 Red Blood Count 4.79 10^6/uL 4.0-5.4 Hemoglobin 14.6 g/dL 12.0-16.0 Hematocrit 43 % 35-47 Mean Corpuscular Volume 90 fL 80-97 Mean Corpuscular Hemoglobin 31 pg 27-31 Mean Corpuscular HGB Conc 34 g/dL 31-36 Red Cell Distribution Width 13 % 10.5-15 Platelet Count 218 10^3/uL 150-450 Mean Platelet Volume 9 um3 7.4-10.4 Basic Metabolic Panel 12/31/2012 Sodium 138 mmol/L 133-145 Potassium 4.2 mmol/L 3.5-5.0 Chloride 103 mmol/L 101-111 Co2 Carbon Dioxide 29.0 mmol/L 22-32 Anion Gap 6.0 mmol/L 2-11 Glucose 91 mg/dL 70-100 Blood Urea Nitrogen 11 mg/dL 6-24 Creatinine 0.80 mg/dL 0.50-1.40 BUN/Creatinine Ratio 13.8 8-20 Calcium 9.8 mg/dL 8.1-9.9 Egfr Non- 71.3 >60 Egfr 91.7 >60 1 CBC No Diff 12/31/2012 White Blood Count 6.0 10^3/uL 4.8-10.8 Red Blood Count 4.29 10^6/uL 4.0-5.4 Hemoglobin 13.0 g/dL 12.0-16.0 Hematocrit 38 % 35-47 Mean Corpuscular Volume 89 fL 80-97 Mean Corpuscular Hemoglobin 30 pg 27-31 Mean Corpuscular HGB Conc 34 g/dL 31-36 Red Cell Distribution Width 13 % 10.5-15 Platelet Count 220 10^3/uL 150-450 Mean Platelet Volume 9 um3 7.4-10.4 Cytology 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 The National Kidney Disease Education Program (NKDEP) does not endorse the use of the MDRD equation for patients that are not between the ages of 18 and 70, are , have extremes of body size, muscle mass, or nutritional status, or are non- or non-. According to the National Kidney Foundation, irrespective of diagnosis, the stage of the disease is based on the level of kidney function: Stage Description GFR(mL/min/1.73 m(2)) 1 Kidney damage with normal or decreased GFR 90 2 Kidney damage with mild decrease in GFR 60-89 3 Moderate decrease in GFR 30-59 4 Severe decrease in GFR 15-29 5 Kidney failure <15 (or dialysis) 2 --- RUN DATE: 04/08/10 [facility] NMI LIVE PAGE 1 RUN TIME: 1454 Specimen Inquiry RUN USER: INTERFACE -- Name: LIS DESAI Accramonita#: [id number] Status: DIS IN Re04/05/10 Age/Sex: 65/F Unit#: [id number] Location: [address] [place] [address]. : 43 -- Specimen: [id number] SOUT Spec Date: 04/05/[address]: Black acpellan MD Spec Type: CYTOLOGY Received: 04/08/10 Copies to: Rosa Maria Fitzpatrick SOURCE CEREBROSPINAL FLUID * PATIENT INFORMATION ACTUAL COLLECTION DATE: 04/05/10 GROSS DESCRIPTION less than 1 ml of clear CSF DIAGNOSIS Rare lymphocytes. Initial evaluation performed by Amari OLMSTEAD([facility]) 04/08/10 Final Interpretation electronically signed by: DEXTER HUBBARD MD 04/08/10 14 54 -- -- DEPARTMENT OF PATHOLOGY, [address] [place] [address] [facility] Permit #[id number] Dexter Hubbard M.D. Director Joselo Muniz M.D. Tour Leader Dir mathew -- Procedures Date CPT Code Description Status 01/06/2018 11850 EKG Tracing & Interpretation Completed 12/27/2017 32162 ECHO Transthorasic Realtime 2D W Doppler & Color Flow Completed Hosp 12/26/2017 46156 Left Heart Cath. Incl S/I Coronaries, Angio S/I V Gram Completed If Done 12/26/2017 12921 Revascularization Acute Total/Subtotal Occlusion Completed 12/23/2017 45925 EKG Tracing & Interpretation Completed 12/02/2016 47130 EKG Tracing & Interpretation Completed 12/03/2015 53430 EKG Tracing & Interpretation Completed 05/10/2015 51336 Treadmill Interp/Report Only Completed 05/10/2015 94197 Stress Test Supervsn W/Out I/R Completed 12/04/2014 59882 EKG Tracing & Interpretation Completed 11/25/2013 50639 EKG Tracing & Interpretation Completed 11/15/2013 21936 Stress Test Supervsn W/Out I/R Completed 11/15/2013 68725 Treadmill Interp/Report Only Completed 07/13/2013 70646 ECHO Transthoracic, Real-Time 2D With Doppler And Color Completed Flow 01/07/2013 45999 EKG Tracing & Interpretation Completed 12/29/2012 71854 EKG, Interpretation Only Completed 12/28/2012 10256 EKG, Interpretation Only Completed 12/27/2012 58838 Left Heart Cath. Incl S/I Coronaries, Angio S/I V Gram Completed If Done 12/27/2012 28545 EKG, Interpretation Only Completed 12/27/2012 57273 Percutaneous Transcatheter Placement Of Intracoronary Completed Stent 12/27/2012 45777 Percutaneous Transcatheter Placement Of Intracoronary Completed Stent 12/27/2012 58491 Percutaneous Transcatheter Placement Of Intracoronary Completed Stent 12/15/2012 15356 Treadmill Interp/Report Only Completed 12/15/2012 46577 Stress Test Supervsn W/Out I/R Completed Encounters Type Date Location Provider CPT E/M Dx Office Visit 02/01/2018 [facility] Jose Maria Contreras, 16124 I46.2 1:45p Louie Lewis, TRISTEN, [facility] I25.10 I25.2 Z86.73 Office Visit 01/06/2018 3:40p [facility] Renan Cole M.D., 28315 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 [facility] TRISTEN JUAREZ, FSCAI I63.9 Office Visit 12/29/2017 11:58a [facility] Prem Mccoy, 26375 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.02 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 [facility] TRISTEN JUAREZ, FSCAI I63.9 Office Visit 12/28/2017 7:00a [facility] Jose L Laipert, 19367 R29.818 I95.9 I21.3 Office Visit 12/28/2017 11:57a [facility] Prem Mccoy, 71690 I46.2 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 [facility] TRISTEN JUAREZ, FSCAI I49.01 I21.3 Office Visit 12/28/2017 11:26[place] [address] I21.3 R57.0 Office Visit 12/27/2017 7:00a [facility] Brittaney Reuben, 77668 R29.818 Joshua I95.9 I21.3 Office Visit 12/27/2017 11:27a [facility] Renan Cole M.D., 65854 I21.02 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 [facility], FSCAI I25.10 Office Visit 12/27/2017 11:26[place] [address] I21.3 R57.0 H53.8 R11.0 Office Visit 12/26/2017 11:24a [facility] Renan Cole M.D., 22272 I21.02 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 [facility], FSCAI I46.2 I49.01 I25.10 Office Visit 12/26/2017 11:25[place] [address] I10 I21.3 I95.9 R57.0 R07.9 Office Visit 12/23/2017 11:00a [facility] Jose Maria Contreras, 01250 I25.10 Louie Lewis, [facility], [facility] Office Visit 12/02/2016 11:15a [facility] Jose Maria Contreras, 35339 I25.10 Louie Lewis, TRISTEN, [facility] Office Visit 12/03/2015 10:30a [facility] Jose Maria Lang Contreras, 12390 I25.10 Louie Lewis, TRISTEN, [facility] I10 Office Visit 05/10/2015 1:24p [facility], Carlotta Michael, 48915 786.50 Hospitalists M.DAlex 530.81 296.20 Office Visit 05/09/2015 1:23p [facility] [place] [address] 411.1 Assoc, Hospitalists M.DAlex 530.81 296.20 Office Visit 12/04/2014 10:30a [facility] Jose Maria Lang Contreras, 65083 414.01 Louie Lewis, TRISTEN, [facility] Office Visit 11/25/2013 1:00p [facility] Jose Maria Contreras, 63340 414.01 Louie Lewis, JOSE ROBERTO, [facility] Office Visit 11/15/2013 4:26p [facility], Nikolas Min, 79657 786.51 Hospitalists M.DAlex 414.01 244.9 530.81 Office Visit 11/14/2013 4:26p [facility], Al Almaraz M.D. 76706 786.51 Hospitalists 414.01 244.9 530.81 Office Visit 07/18/2013 10:15a [facility] Jose Maria Croft Contreras, 39500 414.0 Louie Lewis, TRISTEN, [facility] Office Visit 01/07/2013 12:00p [facility] Jose Maria Croft Contreras, 68114 786.50 Louie Lewis, FAC, [facility] Office Visit 01/05/2013 12:45p [facility] Fly García, 49952 414.9 Louie Lewis V58.41 Office Visit 12/29/2012 10:30a [facility] Renan Cole M.D., 36936 414.9 Louie CID, [facility] Office Visit 12/28/2012 9:59a [facility] Jose Maria Croft Contreras, 67250 414.9 Louie Lewis, JOSE ROBERTO, [facility] Office Visit 12/15/2012 8:32a [facility],pc Carlotta Rodriguez, 48096 786.50 Hospitalcami Lewis 401.9 530.81 Office Visit 12/15/2012 1:30p [facility] Jose Maria Contreras, 40628 786.50 Louie Lewis, TRISTEN, [place] 794.39 Office Visit 12/14/2012 8:31a [facility] Doyle Pierce, 04866 786.50 Assoc,pc Hospitalists N.Elizabeth 401.9 530.81 Plan of Care Future Appointment(s):05/04/2018 1:00 pm - Jose Maria Contreras M.D., TRISTEN, KARSTEN at [facility]04/09/2018 11:00 am - Traveling ECHO 2 at [facility]02/01/2018 - Jose Maria Contreras M.D., TRISTEN, XXVUDH71.2 Cardiac arrest due to underlying cardiac conditionNew Orders:EchocardiogramComments:As discussed, I feel your heart is stable now. Please start cardiac rehab as scheduled and I will recheck your heart function in 3 months by echo.Follow up: after echo in 3 enecurK11.10 Athscl heart disease of [place] coronary artery w/o ang oxhbqM36.2 Old myocardial fngflifictJ17.73 Prsnl hx of TIA (TIA), and cereb infrc w/o resid deficits
--- NOTE | 2018-03-26 11:55 | UC ---
Bite Injury/Animal HPI - HPI Summary HPI Summary: 73 yo female presents with dog bite to right ankle. She tells me that this morning she was eating breakfast at her kitchen table when her two small dogs started paying roughly. They got excited and accidentally scratched and bit her right ankle. Pt cleansed the area and came to . She is unsure when her last tetanus was. Says that the dogs are UTD on all vaccinations and that she has had them both as personal pets for many years. - History of Current Complaint Stated Complaint: DOG BITE Time Seen by Provider: 03/26/18 11:55 Hx Obtained From: Patient Severity Currently: Moderate Severity Initially: Moderate Pain Intensity: 5 Pain Scale Used: 0-10 Numeric Onset/Duration: Sudden Onset Type of Bite: Animal Has Animal Been Immunized?: Yes Character: Puncture - Allergies/Home Medications Allergies/Adverse Reactions: Allergies Allergy/AdvReac Type Severity Reaction Status Date / Time codeine Allergy Nausea And Verified 03/26/18 12:01 Vomiting ticagrelor [From Brilinta] Allergy Shortness Verified 03/26/18 12:01 of Breath PMH/Surg Hx/FS Hx/Imm Hx - Additional Past Medical History Additional PMH: CVA NE Endocrine History: Dyslipidemia Cardiovascular History: Hypertension - Surgical History Surgical History: Yes Surgery Procedure, Year, and Place: Back surgeries (3) W/RESIDUAL RIGHT WEAKNESS. Implant of epidural device for pain control-recent battery change 1 1 /2 yrs ago. CARDIAC CATH W/STENTS X 4 - Family History Known Family History: Positive: Cardiac Disease - Social History Occupation: Retired Lives: With Family Alcohol Use: Occasionally Substance Use Type: None Smoking Status (MU): Never Smoked Tobacco Have You Smoked in the Last Year: No - Immunization History Most Recent Influenza Vaccination: 04/2015 Most Recent Tetanus Shot: within 10 years Most Recent Pneumonia Vaccination: 2018 Review of Systems Constitutional: Negative Skin: Other - Puncture wounds to right ankle Respiratory: Negative Cardiovascular: Negative Neurovascular: Negative Musculoskeletal: Negative Neurological: Negative Psychological: Negative All Other Systems Reviewed And Are Negative: Yes Physical Exam - Summary Physical Exam Summary: GENERAL: NAD. WDWN. No pain distress. SKIN: Right ankle: Two 2mm puncture wounds and one 2.0cm superficial abrasion. Surrounding ecchymosis and mild edema. No FB. No streaking, bleeding, or drainage. NECK: Supple. Nontender. No lymphadenopathy. CHEST: No accessory muscle use. Breathing comfortably and in no distress. CV: Pulses intact MSK: Right ankle: FROM. Strength symmetric NEURO: Alert. CN II-XII grossly intact. PSYCH: Age appropriate behavior. Triage Information Reviewed: Yes Vital Signs: Vital Signs: Temp Pulse Resp BP Pulse Ox 97.7 F 54 16 113/72 96 03/26/18 12:02 03/26/18 12:02 03/26/18 12:02 03/26/18 12:02 03/26/18 12:02 Vital Signs Reviewed: Yes Bite Injury Course/Dx - Course Course Of Treatment: tdap updated today. Wound was cleansed with 250mL NS. Wound bandaged with telfa and kerlix wrap. Rx for Augmentin. Advised to change the dressing daily until well healed. - Differential Dx/Diagnosis Provider Diagnoses: Dog bite right ankle Discharge - Sign-Out/Discharge Documenting (check all that apply): Patient Departure - Discharge Plan Condition: Stable Disposition: HOME Prescriptions: Amoxicillin/Clavulanate TAB* [Augmentin TAB 875*] 875 mg PO BID #14 tab Patient Education Materials: Animal Bite (ED) Referrals: Ольга Bullock MD [Primary Care Provider] - Additional Instructions: If you develop a fever, shortness of breath, chest pain, new or worsening symptoms - please call your PCP or go to the ED. 1) Monitor the area daily and if you develop any redness, drainage, or increased pain/swelling - please return to the Urgent Care to be evaluated - Billing Disposition and Condition Condition: STABLE Disposition: Home
[2018-03-26 12:08] VITALS: BP 113/72
[2018-03-26] MEDS ORDERED: Tetan/Diph/Pertus SYR(Tdap)* 0.5 ML SYR(BOOSTRIX) use SYR IM ONE (12:10)
== END 2018-03-26 13:00 | disposition home or self-care (01) ==
LOC: UCEAST 11:23
DX: S91.031A Puncture wound without foreign body, right ankle, initial encounter (principal); W54.0XXA Bitten by dog, initial encounter; Y93.89 Activity, other specified; Y92.000 Kitchen of unspecified non-institutional (private) residence as the place of occurrence of the external cause; Z88.5 Allergy status to narcotic agent; Z23 Encounter for immunization; Z88.8 Allergy status to other drugs, medicaments and biological substances; Z82.49 Family history of ischemic heart disease and other diseases of the circulatory system
CPT/HCPCS: 90715; 99212; G0463

== ENCOUNTER 2018-06-07 10:35 | Emergency (ER) | payer MEDICARE ==
[2018-06-07] MEDS ORDERED: Famotidine TAB* 20 MG PO ONE (10:51)
[2018-06-07] MEDS ORDERED: Aspirin 81 mg CHEW TAB* 81 MG TAB.CHEW PO ONE (10:51)
[2018-06-07] MEDS ORDERED: Ketorolac INJ* 30 MG/ML 1 ML VIAL IV PUSH ONE (11:19)
[2018-06-07 11:25] LABS: INR 0.94 (0.77-1.02)
[2018-06-07 11:34] LABS: ABS Basophils 0 10^3/ul (0-0.2); ABS Eosinophils 0.2 10^3/ul (0-0.6); ABS Lymphocytes 1.5 10^3/ul (1.0-4.8); ABS Monocytes 0.3 10^3/ul (0-0.8); ABS Neutrophils 2.8 10^3/ul (1.5-7.7); ABS Nucleated RBC 0 10^3/ul; Eosinophil % 3.1 % (0-6); Hematocrit 45 % (35-47); Hemoglobin 15.1 g/dl (12.0-16.0); Lymphocyte % 30.5 % (25-47); Mean Corpuscular HGB Conc 34 g/dl (31-36); Mean Corpuscular Hemoglobin 30 pg (27-31); Mean Corpuscular Volume 88 fL (80-97); Mean Platelet Volume 8.4 um3 (7.4-10.4); Nucleated Red Blood Cells % 0.2; Platelet Count 188 10^3/ul (150-450); Red Blood Count 5.08 10^6/ul (4.00-5.40); Red Cell Distribution Width 13 % (10.5-15); White Blood Count 4.8 10^3/ul (3.5-10.8)
--- NOTE | 2018-06-07 11:37 | RAD ---
Indication: Chest pain. Coronary artery disease with prior myocardial infarction and stents. Comparison: December 26, 2017 Technique: Upright AP 1125 hours Report: Negative for cardiomegaly. Unremarkable central pulmonary vasculature and mediastinal contours. Small calcified granuloma at the LEFT lower lung zone. Small calcified bilateral hilar lymph nodes. Negative for pulmonary infiltrate, pleural effusions, or pneumothorax. Cephalad margin of the dorsal column stimulator lead is at the T9 level. IMPRESSION: #. No evidence for pulmonary edema.
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
[2018-06-07 11:40] LABS: EGFR Non-African American 65.4 (>60)
[2018-06-07] MEDS ORDERED: Lidocaine 2% VISCOUS* 15 ML UDC PO ONE (13:00)
[2018-06-07] MEDS ORDERED: Omeprazole CAP* 20 MG PO ONE (13:00)
[2018-06-07] MEDS ORDERED: Al Hydrox/Mg Hydrox/Simet LIQ* 30 ML UDC PO ONE (13:00)
[2018-06-07 14:08] VITALS: BP 148/81
== END 2018-06-07 14:09 | disposition home or self-care (01) ==
LOC: ED 10:35
DX: R07.89 Other chest pain (principal); K21.9 Gastro-esophageal reflux disease without esophagitis; I25.10 Atherosclerotic heart disease of native coronary artery without angina pectoris; Z95.5 Presence of coronary angioplasty implant and graft; R05 Cough
CPT/HCPCS: 36415; 71045; 80053; 83605; 83690; 84443; 84484; 85025; 85379; 85610; 93005; 96374; 99282; A9270-GY; J1885

== ENCOUNTER 2018-12-02 16:01 | Emergency (ER) | payer MEDICARE ==
[2018-12-02 16:12] VITALS: BP 128/91
--- NOTE | 2018-12-02 16:25 | UC ---
Skin Complaint HPI - HPI Summary HPI Summary: Noticed tick on L side of head last night and removed another tick behind her R knee. Not engorged. denies pain. requests removal. - History of Current Complaint Chief Complaint: UCSkin Time Seen by Provider: 12/02/18 16:01 Stated Complaint: TICK BITE Hx Obtained From: Patient Onset/Duration: Sudden Onset Pain Intensity: 0 Pain Scale Used: 0-10 Numeric Location: Discrete - Allergy/Home Medications Allergies/Adverse Reactions: Allergies Allergy/AdvReac Type Severity Reaction Status Date / Time codeine Allergy Nausea And Verified 12/02/18 16:12 Vomiting ticagrelor [From Brilinta] Allergy Shortness Verified 12/02/18 16:12 of Breath Home Medications: Home Medications Pantoprazole TAB * [Protonix TAB*] 40 mg PO DAILY 12/02/18 [History Confirmed ] PMH/Surg Hx/FS Hx/Imm Hx Previously Healthy: Yes Cardiovascular History: Cardiac Disease, Hypertension GI/ History: Gastroesophageal Reflux - Surgical History Surgical History: None Surgery Procedure, Year, and Place: Back surgeries (3) W/RESIDUAL RIGHT WEAKNESS. Implant of epidural device for pain control-recent battery change 1 1 /2 yrs ago. CARDIAC CATH W/STENTS X 4 - Family History Known Family History: Positive: Cardiac Disease, Hypertension - Social History Alcohol Use: Occasionally Substance Use Type: None Smoking Status (MU): Never Smoked Tobacco Have You Smoked in the Last Year: No - Immunization History Most Recent Influenza Vaccination: 04/2015 Most Recent Tetanus Shot: within 10 years Most Recent Pneumonia Vaccination: 2018 Review of Systems All Other Systems Reviewed And Are Negative: Yes Constitutional: Negative: Fever, Chills Musculoskeletal: Positive: Other: - tick/side of head left Physical Exam Triage Information Reviewed: Yes Appearance: Well-Appearing Vital Signs: Initial Vital Signs Temp 97.4 F 12/02/18 16:05 Pulse 86 12/02/18 16:05 Resp 18 12/02/18 16:05 BP 128/91 12/02/18 16:05 Pulse Ox 99 12/02/18 16:05 Vital Signs Reviewed: Yes Skin: Positive: Other - Tick removal on L temporal aspect. no complications. tick NOT ENGORGED. Course/Dx - Course Course Of Treatment: Tick removal after being attached for <36hrs; not engorged. Removal was successful w/ no complications. - Differential Diagnoses - Skin Complaint Differential Diagnoses: Tick Born Illness - Diagnoses Provider Diagnosis: Tick bite with subsequent removal of tick Discharge - Sign-Out/Discharge Documenting (check all that apply): Patient Departure All imaging exams completed and their final reports reviewed: No Studies - Discharge Plan Condition: Good Disposition: HOME Patient Education Materials: Tick Bite (ED) Referrals: Ольга Bullock MD [Primary Care Provider] - Additional Instructions: Please follow up with your primary care provider if new symptoms arise. - Billing Disposition and Condition Condition: GOOD Disposition: Home
== END 2018-12-02 16:30 | disposition home or self-care (01) ==
LOC: UCEAST 16:01
DX: S00.86XA Insect bite (nonvenomous) of other part of head, initial encounter (principal); S80.261A Insect bite (nonvenomous), right knee, initial encounter; W57.XXXA Bitten or stung by nonvenomous insect and other nonvenomous arthropods, initial encounter; Y92.9 Unspecified place or not applicable; I11.9 Hypertensive heart disease without heart failure; K21.9 Gastro-esophageal reflux disease without esophagitis; Z88.5 Allergy status to narcotic agent; Z88.8 Allergy status to other drugs, medicaments and biological substances
CPT/HCPCS: 99212; G0463

== ENCOUNTER 2019-01-11 13:39 | Emergency (ER) | payer MEDICARE ==
[2019-01-11 13:54] VITALS: BP 131/73
--- NOTE | 2019-01-11 14:29 | UC ---
General HPI - HPI Summary HPI Summary: States she woke up with her left eyelid red and puffy. No vision changes. Denies any new creams. Denies bug bite, but she is outside a lot. NO URI s/s. Eye is painful and slightly itchy. Has had more than a week of left arm numbness and tingling - happens when she holds a book up for prolonged periods or when she is on her side, then repositions herself and symptoms resolve. No chest pain. Is getting worked up for her GI issues. Meds; Reviewed. No SOB. No nausea or diaphoresis - History of Current Complaint Chief Complaint: Vibha Stated Complaint: EYE ISSUE ARM TINGLES Time Seen by Provider: 01/11/19 14:03 Pain Intensity: 3 - Allergy/Home Medications Allergies/Adverse Reactions: Allergies Allergy/AdvReac Type Severity Reaction Status Date / Time codeine Allergy Nausea And Verified 01/11/19 13:56 Vomiting ticagrelor [From Brilinta] Allergy Shortness Verified 01/11/19 13:56 of Breath PMH/Surg Hx/FS Hx/Imm Hx Previously Healthy: No Endocrine History: Dyslipidemia Cardiovascular History: Cardiac Disease GI/ History: Gastroesophageal Reflux - Surgical History Surgical History: None Surgery Procedure, Year, and Place: Back surgeries (3) W/RESIDUAL RIGHT WEAKNESS. Implant of epidural device for pain control-recent battery change 1 1 /2 yrs ago. CARDIAC CATH W/STENTS X 4 - Family History Known Family History: Positive: Cardiac Disease, Hypertension - Social History Alcohol Use: Occasionally Substance Use Type: None Smoking Status (MU): Never Smoked Tobacco Have You Smoked in the Last Year: No - Immunization History Most Recent Influenza Vaccination: 04/2015 Most Recent Tetanus Shot: within 10 years Most Recent Pneumonia Vaccination: 2018 Review of Systems All Other Systems Reviewed And Are Negative: Yes Physical Exam Triage Information Reviewed: Yes Appearance: Well-Appearing Vital Signs: Initial Vital Signs Temp 98.0 F 01/11/19 13:50 Pulse 65 01/11/19 13:50 Resp 18 01/11/19 13:50 BP 131/73 01/11/19 13:50 Pulse Ox 98 01/11/19 13:50 Eyes: Positive: Conjunctiva Clear, Other: - right eyelid - minimal edema, mild erythema streaking down nasal bridge ENT: Positive: Normal ENT inspection Neck: Positive: Supple, Nontender Respiratory: Positive: Lungs clear Cardiovascular: Positive: RRR, Murmur:Sys:Grade _?_/ - 2 Course/Dx - Course Course Of Treatment: This is a 73 yr old with right eye redness Could be contact dermatitis but cannot exclude cellulitis FEel her left arm is likely nerve impingement because it is positional - recommend further follow up with PCP Continue to monitor redness and swelling in eye Start antibiotics as prescribed If symptoms persist or worsen, recommend follow up with PCP or return to urgent care or the ER If you develop any chest discomfort, left arm weakness or numbness that does not resolve with position, go to the ER - Diagnoses Provider Diagnosis: Cellulitis Discharge - Sign-Out/Discharge Documenting (check all that apply): Patient Departure All imaging exams completed and their final reports reviewed: No Studies - Discharge Plan Condition: Fair Disposition: HOME Prescriptions: Cephalexin CAP* [Keflex CAP*] 500 mg PO QID #20 cap Patient Education Materials: Cellulitis (ED) Referrals: Ольга Bullock MD [Primary Care Provider] - Additional Instructions: Continue to monitor redness and swelling in eye Start antibiotics as prescribed If symptoms persist or worsen, recommend follow up with PCP or return to urgent care or the ER If you develop any chest discomfort, left arm weakness or numbness that does not resolve with position, go to the ER - Billing Disposition and Condition Condition: FAIR Disposition: Home
== END 2019-01-11 14:45 | disposition home or self-care (01) ==
LOC: UCEAST 13:39
DX: H00.033 Abscess of eyelid right eye, unspecified eyelid (principal); Z88.5 Allergy status to narcotic agent; Z88.8 Allergy status to other drugs, medicaments and biological substances
CPT/HCPCS: 99212; G0463

== ENCOUNTER 2019-04-20 16:01 | Emergency (ER) | payer MEDICARE ==
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
[2019-04-20 16:09] VITALS: BP 124/73
--- NOTE | 2019-04-20 16:27 | UC ---
Throat Pain/Nasal Viktor HPI - HPI Summary HPI Summary: 74-year-old female presents with complaints of one week history of nasal congestion, bilateral ear fullness, sore throat, and occasional nonproductive cough. Associated with a couple episodes of brief dizziness with standing and mild nausea. Denies fever, chills, tinnitus, hearing loss, dysphasia, chest pain, palpitations, or shortness of breath. - History of Current Complaint Chief Complaint: UCGeneralIllness Stated Complaint: EAR AND THROAT PAIN Time Seen by Provider: 04/20/19 16:23 Hx Obtained From: Patient Pain Intensity: 3 - Allergies/Home Medications Allergies/Adverse Reactions: Allergies Allergy/AdvReac Type Severity Reaction Status Date / Time codeine Allergy Nausea And Verified 04/20/19 16:09 Vomiting ticagrelor [From Brilinta] Allergy Shortness Verified 04/20/19 16:09 of Breath PMH/Surg Hx/FS Hx/Imm Hx Cardiovascular History: Cardiac Disease, Hypertension, Myocardial Infarction GI/ History: Gastroesophageal Reflux Psychological History: Depression - Surgical History Surgical History: None Surgery Procedure, Year, and Place: Back surgeries (3) W/RESIDUAL RIGHT WEAKNESS. Implant of epidural device for pain control-recent battery change 1 1 /2 yrs ago. CARDIAC CATH W/STENTS X 4 - Family History Known Family History: Positive: Cardiac Disease, Hypertension - Social History Alcohol Use: Rare Substance Use Type: None Smoking Status (MU): Never Smoked Tobacco Have You Smoked in the Last Year: No - Immunization History Most Recent Influenza Vaccination: 04/2015 Most Recent Tetanus Shot: within 10 years Most Recent Pneumonia Vaccination: 2018 Review of Systems All Other Systems Reviewed And Are Negative: Yes Constitutional: Negative: Fever, Chills Skin: Negative: Rash Eyes: Negative: Drainage, Eye Redness ENT: Positive: Sore Throat, Ear Ache, Nasal Discharge, Sinus Congestion. Negative: Sinus Pain/Tenderness Respiratory: Positive: Cough. Negative: Shortness Of Breath Cardiovascular: Negative: Palpitations, Chest Pain Gastrointestinal: Positive: Nausea. Negative: Abdominal Pain, Vomiting Genitourinary: Positive: Negative Musculoskeletal: Positive: Negative Neurological: Positive: Negative Is Patient Immunocompromised?: No Physical Exam - Summary Physical Exam Summary: GENERAL APPEARANCE: Well developed, well nourished, alert and cooperative, and appears to be in no acute distress. EYES: Conjunctiva clear. No drainage. EARS: External auditory canals and tympanic membranes clear, hearing grossly intact. NOSE: Mild nasal congestion. No nasal discharge. THROAT: Mild pharyngeal erythema and cobblestoning. No tonsilar inflammation, swelling, exudate, or lesions. Uvula midline. NECK: Neck supple, non-tender. Mild anterior cervical lymphadenopathy. CARDIAC: Normal S1 and S2. No S3, S4 or murmurs. Rhythm is regular. There is no peripheral edema, cyanosis or pallor. Extremities are warm and well perfused. Capillary refill is less than 2 seconds. Peripheral pulses intact. LUNGS: Clear to auscultation without rales, rhonchi, wheezing or diminished breath sounds. Cough not observed. ABDOMEN: Positive bowel sounds. Soft, nondistended, nontender. No guarding or rebound. No masses or hepatosplenomegally. MUSKULOSKELETAL: ROM intact to all extremities. No joint erythema or tenderness. Normal muscular development. Normal gait. SKIN: Skin normal color, texture and turgor with no lesions or eruptions. Triage Information Reviewed: Yes Vital Signs: Initial Vital Signs Temp 97.5 F 04/20/19 16:06 Pulse 68 04/20/19 16:06 Resp 18 04/20/19 16:06 BP 124/73 04/20/19 16:06 Pulse Ox 97 04/20/19 16:06 Vital Signs Reviewed: Yes Throat Pain/Nasal Course/Dx - Course Course Of Treatment: 74-year-old female presents with complaints of one week history of nasal congestion, bilateral ear fullness, sore throat, and occasional nonproductive cough. Associated with a couple episodes of brief dizziness with standing and mild nausea. Denies fever, chills, tinnitus, hearing loss, dysphasia, chest pain, palpitations, or shortness of breath. Afebrile. VSS. Patient had mild nasal congestion, mild pharyngeal erythema and cobblestoning without tonsilar swelling or exudate, anterior cervical lymphadenopathy, clear bilateral breath sounds, and otherwise unremarkable exam. Recommending symptomatic treatment for a viral URI. She is to follow up with her PCP in 5-7 days if symptoms persist. Anticipatory guidance and warning symptoms reviewed with patient. Verbalizes understanding and agrees with POC. - Differential Dx/Diagnosis Differential Diagnosis/HQI/PQRI: Otitis Media, Pharyngitis, Tonsillitis, URI Provider Diagnosis: Viral URI Discharge ED - Sign-Out/Discharge Documenting (check all that apply): Patient Departure All imaging exams completed and their final reports reviewed: No Studies - Discharge Plan Condition: Stable Disposition: HOME Prescriptions: Fluticasone NASAL SPRAY 50MCG* [Flonase NASAL SPRAY 50MCG*] 2 spray BOTH NARES DAILY #1 btl Patient Education Materials: Upper Respiratory Infection (ED) Referrals: Ольга Bullock MD [Primary Care Provider] - 5 Days Additional Instructions: Your history and exam are consistent with a viral upper respiratory infection. Viral infections do not respond to antibiotics and are limited to the treatment of symptoms. Viral infections typically run their course in 10-14 days. Drink plenty of fluids to avoid dehydration especially if you are running any fever. Use fluticasone (Flonase) nasal spray 2 sprays each nostril once daily. Take over the counter acetaminophen (Tylenol) according to directions as needed for pain or fever. Use salt water gargles several times a day if you have a sore throat. You may also use Chloraseptic spray or Cepacol lonzenges according to directions which contain a numbing medication and can provide some temporary relief from your sore throat. Follow up with your primary care provider in 5-7 days if symptoms persist. Seek immediate medical attention in the emergency room if you have fever greater than 100.5 F despite taking acetaminophen or ibuprofen, have chest pain , difficulty breathing, are unable to swallow, or have any worsening of symptoms. - Billing Disposition and Condition Condition: STABLE Disposition: Home
== END 2019-04-20 16:56 | disposition home or self-care (01) ==
LOC: UCEAST 16:01
DX: J06.9 Acute upper respiratory infection, unspecified (principal); I10 Essential (primary) hypertension; I25.2 Old myocardial infarction; K21.9 Gastro-esophageal reflux disease without esophagitis; F32.9 Major depressive disorder, single episode, unspecified; Z88.5 Allergy status to narcotic agent
CPT/HCPCS: 87651; 99211; G0463

== ENCOUNTER 2019-06-06 14:50 | Emergency (ER) | payer MEDICARE ==
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
[2019-06-06 15:14] LABS: ABS Eosinophils 0.2 10^3/ul (0-0.6); ABS Lymphocytes 1.7 10^3/ul (1.0-4.8); ABS Monocytes 0.4 10^3/ul (0-0.8); ABS Neutrophils 2.4 10^3/ul (1.5-7.7); Eosinophil % 3.5 %; Hematocrit 42 % (35-47); Hemoglobin 14.6 g/dL (12.0-16.0); Lymphocyte % 36.3 %; Mean Corpuscular HGB Conc 35 g/dL (31-36); Mean Corpuscular Hemoglobin 30 pg (27-31); Mean Corpuscular Volume 86 fL (80-97); Mean Platelet Volume 8.4 fL (7.4-10.4); Platelet Count 198 10^3/uL (150-450); Red Blood Count 4.95 10^6 /uL (3.70-4.87); Red Cell Distribution Width 14 % (10-15); White Blood Count 4.7 10^3/uL (3.5-10.8)
[2019-06-06 15:19] LABS: INR 1.04 (0.82-1.09)
[2019-06-06 15:45] LABS: Albumin 4.4 g/dL (3.2-5.2); Albumin/Globulin Ratio 1.6 (1-3); BUN/Creatinine Ratio 16.7 (8-20); Calcium 9.5 mg/dL (8.6-10.3); EGFR African American 73.9 (>60); Globulin 2.7 g/dL (2-4); Potassium 4.2 mmol/L (3.5-5.0); Total Bilirubin 0.6 mg/dL (0.2-1.0); Total Protein 7.1 g/dL (6.4-8.9)
[2019-06-06 18:36] VITALS: BP 148/75
== END 2019-06-06 18:44 | disposition home or self-care (01) ==
LOC: ED 14:50
DX: R07.9 Chest pain, unspecified (principal); E03.9 Hypothyroidism, unspecified; I25.10 Atherosclerotic heart disease of native coronary artery without angina pectoris; E78.00 Pure hypercholesterolemia, unspecified; I10 Essential (primary) hypertension; I25.2 Old myocardial infarction; K21.9 Gastro-esophageal reflux disease without esophagitis; F41.9 Anxiety disorder, unspecified; F32.9 Major depressive disorder, single episode, unspecified; Z86.74 Personal history of sudden cardiac arrest; Z79.01 Long term (current) use of anticoagulants; Z79.82 Long term (current) use of aspirin; Z79.899 Other long term (current) drug therapy; Z88.5 Allergy status to narcotic agent; Z88.8 Allergy status to other drugs, medicaments and biological substances
CPT/HCPCS: 36415; 80053; 84484; 85025; 85610; 93005; 99283

== ENCOUNTER 2020-08-03 06:58 | Inpatient (IN) ==
[2020-08-03 08:45] LABS: ABS Lymphocytes 0.6 10^3/ul (1.0-4.8); ABS Monocytes 0.3 10^3/ul (0-0.8); ABS Neutrophils 3.6 10^3/ul (1.5-7.7); Eosinophil % 0.3 %; Hematocrit 39 % (35-47); Hemoglobin 13.5 g/dL (12.0-16.0); Lymphocyte % 12.8 %; Mean Corpuscular HGB Conc 35 g/dL (31-36); Mean Corpuscular Hemoglobin 30 pg (27-31); Mean Corpuscular Volume 87 fL (80-97); Mean Platelet Volume 8.3 fL (7.4-10.4); Platelet Count 192 10^3/uL (150-450); Red Blood Count 4.48 10^6 /uL (3.70-4.87); Red Cell Distribution Width 13 % (10-15); White Blood Count 4.6 10^3/uL (3.5-10.8)
[2020-08-03 09:01] LABS: Influenza A Molecular Negative (Negative); Influenza B Molecular Negative (Negative)
[2020-08-03 09:03] LABS: ALT 11 U/L (7-52); Albumin 3.9 g/dL (3.2-5.2); Albumin/Globulin Ratio 1.3 (1-3); Alkaline Phosphatase 66 U/L (34-104); Blood Urea Nitrogen 10 mg/dL (6-24); C Reactive Protein 94.63 mg/L (<8.01); CO2 Carbon Dioxide 26 mmol/L (22-32); Calcium 8.9 mg/dL (8.6-10.3); Chloride 103 mmol/L (101-111); Creatine Kinase 39 U/L (10-223); EGFR African American 80.9 (>60); EGFR Non-African American 66.8 (>60); Glucose 103 mg/dL (70-100); Sodium 135 mmol/L (135-145); Total Protein 6.9 g/dL (6.4-8.9)
[2020-08-03 09:07] LABS: CKMB ng/mL 0.3 ng/mL (0.6-6.3)
[2020-08-03] MEDS ORDERED: Dexamethasone IV 4 MG/ML VIAL 1 ml VIAL IV SLOW PU ONE (09:48)
[2020-08-03 09:56] LABS: Anion Gap 6 mmol/L (2-11)
[2020-08-03 11:10] LABS: Activated Partial Thrombo Time 38.6 seconds (26.0-38.0); INR 1.09 (0.82-1.09)
[2020-08-03 11:55] LABS: Potassium Redraw 4.5 mmol/L (3.5-5.0)
[2020-08-03] MEDS ORDERED: Remdesivir 5 MG/ML LIQ IV Vial 200 MG in NS 0.9% 250 ml 210 ML IV ONE (12:38)
[2020-08-03] MEDS ORDERED: NS 0.9% 1000 ml BAG 1,000 ML IV SCH (12:45)
[2020-08-03 13:27] LABS: Urine Appearance Cloudy; Urine Bilirubin Negative (Negative); Urine Blood Negative (Negative); Urine Color Yellow; Urine Glucose Negative (Negative); Urine Ketones Negative (Negative); Urine Nitrite Negative (Negative); Urine Protein Negative (Negative); Urine Urobilinogen Negative (Negative)
[2020-08-03] MEDS: Enoxaparin 30 MG/0.3 ML SYR SUBCUT SCH (21:14)
[2020-08-03] MEDS: Latanoprost 0.005% 2.5 ml BTL BOTH EYES SCH (21:14)
[2020-08-03] MEDS: CMCS: Dorzolamide/Timolol OPTH (NF) 10 ML BOT BOTH EYES SCH (21:14)
[2020-08-03] MEDS ORDERED: Prochlorperazine 5 mg/ml 2 ml VIAL (10 mg) IV PRN (23:01)
[2020-08-03] MEDS: Ondansetron 4 mg VIAL 2 MG/ML 2 ml VIAL IV PRN (23:29)
[2020-08-04] MEDS: Ondansetron 4 mg VIAL 2 MG/ML 2 ml VIAL IV PRN ×2 (06:17→12:19)
[2020-08-04 06:29] LABS: ABS Monocytes 0.4 10^3/ul (0-0.8); ABS Neutrophils 2.3 10^3/ul (1.5-7.7); Eosinophil % 0.1 %; Hematocrit 40 % (35-47); Hemoglobin 13.6 g/dL (12.0-16.0); Lymphocyte % 27.8 %; Mean Corpuscular HGB Conc 34 g/dL (31-36); Mean Corpuscular Hemoglobin 29 pg (27-31); Mean Corpuscular Volume 86 fL (80-97); Mean Platelet Volume 7.9 fL (7.4-10.4); Nucleated Red Blood Cells % 0.1; Platelet Count 202 10^3/uL (150-450); Red Blood Count 4.64 10^6 /uL (3.70-4.87); Red Cell Distribution Width 14 % (10-15); White Blood Count 3.8 10^3/uL (3.5-10.8)
[2020-08-04 06:44] LABS: Albumin 3.9 g/dL (3.2-5.2); Albumin/Globulin Ratio 1.4 (1-3); BUN/Creatinine Ratio 21.4 (8-20); Calcium 8.9 mg/dL (8.6-10.3); EGFR African American 98.4 (>60); EGFR Non-African American 81.4 (>60); Globulin 2.8 g/dL (2-4); Potassium 4.2 mmol/L (3.5-5.0); Total Bilirubin 0.4 mg/dL (0.2-1.0); Total Protein 6.7 g/dL (6.4-8.9)
[2020-08-04] MEDS: Aspirin EC 81 mg TAB.EC (enteric coated) PO SCH (09:26)
[2020-08-04] MEDS: Enoxaparin 30 MG/0.3 ML SYR SUBCUT SCH ×2 (09:26→20:45)
[2020-08-04] MEDS: Latanoprost 0.005% 2.5 ml BTL BOTH EYES SCH ×2 (09:27→20:42)
[2020-08-04] MEDS: CMCS: Dorzolamide/Timolol OPTH (NF) 10 ML BOT BOTH EYES SCH ×2 (09:27→20:47)
[2020-08-04] MEDS ORDERED: Albuterol HFA INHALER 8 gm MDI INH PRN (12:36)
[2020-08-04] MEDS ORDERED: Albuterol 2.5mg/3 ml (0.083%) NEB.SOLN INH PRN (12:53)
[2020-08-04] MEDS: Remdesivir 5 MG/ML LIQ IV Vial 100 MG in NS 0.9% 250 ml 230 ML IV SCH (14:21)
[2020-08-05 06:13] LABS: ABS Basophils 0.1 10^3/ul (0-0.2); ABS Lymphocytes 0.9 10^3/ul (1.0-4.8); ABS Monocytes 0.4 10^3/ul (0-0.8); ABS Neutrophils 3.1 10^3/ul (1.5-7.7); Eosinophil % 0.1 %; Hematocrit 36 % (35-47); Hemoglobin 12.6 g/dL (12.0-16.0); Lymphocyte % 19.4 %; Mean Corpuscular HGB Conc 35 g/dL (31-36); Mean Corpuscular Hemoglobin 30 pg (27-31); Mean Corpuscular Volume 86 fL (80-97); Mean Platelet Volume 8.1 fL (7.4-10.4); Platelet Count 217 10^3/uL (150-450); Red Blood Count 4.21 10^6 /uL (3.70-4.87); Red Cell Distribution Width 13 % (10-15); White Blood Count 4.4 10^3/uL (3.5-10.8)
[2020-08-05 06:32] LABS: Albumin 3.5 g/dL (3.2-5.2); Albumin/Globulin Ratio 1.3 (1-3); BUN/Creatinine Ratio 21.8 (8-20); C Reactive Protein 31.54 mg/L (<8.01); Calcium 8.5 mg/dL (8.6-10.3); EGFR African American 86.9 (>60); EGFR Non-African American 71.8 (>60); Globulin 2.6 g/dL (2-4); Indirect Bilirubin 0.3 mg/dL (0.3-1.0); Potassium 3.6 mmol/L (3.5-5.0); Total Bilirubin 0.4 mg/dL (0.2-1.0); Total Protein 6.1 g/dL (6.4-8.9)
[2020-08-05] MEDS: CMCS: Dorzolamide/Timolol OPTH (NF) 10 ML BOT BOTH EYES SCH ×2 (08:56→21:23)
[2020-08-05] MEDS: Aspirin EC 81 mg TAB.EC (enteric coated) PO SCH (08:56)
[2020-08-05] MEDS: Latanoprost 0.005% 2.5 ml BTL BOTH EYES SCH ×2 (08:56→21:23)
[2020-08-05] MEDS: Enoxaparin 30 MG/0.3 ML SYR SUBCUT SCH ×2 (08:57→21:24)
[2020-08-05] MEDS: Remdesivir 5 MG/ML LIQ IV Vial 100 MG in NS 0.9% 250 ml 230 ML IV SCH (15:35)
[2020-08-05] MEDS: Ondansetron 4 mg VIAL 2 MG/ML 2 ml VIAL IV PRN (15:35)
[2020-08-06 08:23] LABS: ALT 11 U/L (7-52); AST 21 U/L (13-39); Albumin 3.4 g/dL (3.2-5.2); Albumin/Globulin Ratio 1.4 (1-3); Alkaline Phosphatase 52 U/L (34-104); Globulin 2.5 g/dL (2-4); Total Protein 5.9 g/dL (6.4-8.9)
[2020-08-06] MEDS: CMCS: Dorzolamide/Timolol OPTH (NF) 10 ML BOT BOTH EYES SCH ×2 (10:30→20:45)
[2020-08-06] MEDS: Latanoprost 0.005% 2.5 ml BTL BOTH EYES SCH ×2 (10:30→20:45)
[2020-08-06] MEDS: Enoxaparin 30 MG/0.3 ML SYR SUBCUT SCH ×2 (10:30→20:44)
[2020-08-06] MEDS: Aspirin EC 81 mg TAB.EC (enteric coated) PO SCH (10:30)
[2020-08-06] MEDS: Remdesivir 5 MG/ML LIQ IV Vial 100 MG in NS 0.9% 250 ml 230 ML IV SCH (14:54)
[2020-08-06] MEDS: Ondansetron 4 mg VIAL 2 MG/ML 2 ml VIAL IV PRN (20:44)
[2020-08-07] MEDS: Ondansetron 4 mg VIAL 2 MG/ML 2 ml VIAL IV PRN (04:50)
[2020-08-07 06:00] LABS: Albumin 3.3 g/dL (3.2-5.2); Albumin/Globulin Ratio 1.5 (1-3); Globulin 2.2 g/dL (2-4); Indirect Bilirubin 0.3 mg/dL (0.3-1.0); Total Bilirubin 0.4 mg/dL (0.2-1.0); Total Protein 5.5 g/dL (6.4-8.9)
[2020-08-07] MEDS: Enoxaparin 30 MG/0.3 ML SYR SUBCUT SCH ×2 (09:41→21:42)
[2020-08-07] MEDS: Aspirin EC 81 mg TAB.EC (enteric coated) PO SCH (09:41)
[2020-08-07] MEDS: CMCS: Dorzolamide/Timolol OPTH (NF) 10 ML BOT BOTH EYES SCH ×2 (09:42→21:42)
[2020-08-07] MEDS: Latanoprost 0.005% 2.5 ml BTL BOTH EYES SCH ×2 (09:42→21:43)
[2020-08-07] MEDS: Remdesivir 5 MG/ML LIQ IV Vial 100 MG in NS 0.9% 250 ml 230 ML IV SCH (15:38)
[2020-08-08 06:05] LABS: Albumin 3.2 g/dL (3.2-5.2); Albumin/Globulin Ratio 1.4 (1-3); Globulin 2.3 g/dL (2-4); Indirect Bilirubin 0.2 mg/dL (0.3-1.0); Total Bilirubin 0.3 mg/dL (0.2-1.0); Total Protein 5.5 g/dL (6.4-8.9)
[2020-08-08] MEDS: Aspirin EC 81 mg TAB.EC (enteric coated) PO SCH (08:54)
[2020-08-08] MEDS: Ondansetron 4 mg VIAL 2 MG/ML 2 ml VIAL IV PRN (08:54)
[2020-08-08] MEDS: Enoxaparin 30 MG/0.3 ML SYR SUBCUT SCH ×2 (08:55→20:48)
[2020-08-08] MEDS: Latanoprost 0.005% 2.5 ml BTL BOTH EYES SCH ×2 (08:55→20:48)
[2020-08-08] MEDS: CMCS: Dorzolamide/Timolol OPTH (NF) 10 ML BOT BOTH EYES SCH ×2 (08:55→20:48)
[2020-08-08] MEDS: Remdesivir 5 MG/ML LIQ IV Vial 100 MG in NS 0.9% 250 ml 230 ML IV SCH (16:19)
[2020-08-09 07:12] LABS: Albumin 3.1 g/dL (3.2-5.2); Albumin/Globulin Ratio 1.4 (1-3); Globulin 2.2 g/dL (2-4); Indirect Bilirubin 0.3 mg/dL (0.3-1.0); Total Bilirubin 0.4 mg/dL (0.2-1.0); Total Protein 5.3 g/dL (6.4-8.9)
[2020-08-09] MEDS: Aspirin EC 81 mg TAB.EC (enteric coated) PO SCH (08:17)
[2020-08-09] MEDS: CMCS: Dorzolamide/Timolol OPTH (NF) 10 ML BOT BOTH EYES SCH ×2 (08:20→22:06)
[2020-08-09] MEDS: Enoxaparin 30 MG/0.3 ML SYR SUBCUT SCH ×2 (08:20→22:08)
[2020-08-09] MEDS: Latanoprost 0.005% 2.5 ml BTL BOTH EYES SCH ×2 (08:20→22:06)
[2020-08-10] MEDS: Aspirin EC 81 mg TAB.EC (enteric coated) PO SCH (08:58)
[2020-08-10] MEDS: Enoxaparin 30 MG/0.3 ML SYR SUBCUT SCH ×2 (08:59→20:55)
[2020-08-10] MEDS: Latanoprost 0.005% 2.5 ml BTL BOTH EYES SCH ×2 (09:02→20:55)
[2020-08-10] MEDS: CMCS: Dorzolamide/Timolol OPTH (NF) 10 ML BOT BOTH EYES SCH ×2 (09:02→20:55)
[2020-08-11 05:50] LABS: ABS Lymphocytes 1.1 10^3/ul (1.0-4.8); ABS Monocytes 0.5 10^3/ul (0-0.8); ABS Neutrophils 4.8 10^3/ul (1.5-7.7); Eosinophil % 0.4 %; Hematocrit 37 % (35-47); Hemoglobin 12.7 g/dL (12.0-16.0); Lymphocyte % 17.6 %; Mean Corpuscular HGB Conc 34 g/dL (31-36); Mean Corpuscular Hemoglobin 29 pg (27-31); Mean Corpuscular Volume 85 fL (80-97); Mean Platelet Volume 8.7 fL (7.4-10.4); Platelet Count 248 10^3/uL (150-450); Red Blood Count 4.36 10^6 /uL (3.70-4.87); Red Cell Distribution Width 13 % (10-15); White Blood Count 6.4 10^3/uL (3.5-10.8)
[2020-08-11 06:03] LABS: BUN/Creatinine Ratio 29.7 (8-20); Calcium 8.8 mg/dL (8.6-10.3); EGFR African American 92.3 (>60); EGFR Non-African American 76.3 (>60); Potassium 4.1 mmol/L (3.5-5.0)
[2020-08-11] MEDS: Aspirin EC 81 mg TAB.EC (enteric coated) PO SCH (09:35)
[2020-08-11] MEDS: CMCS: Dorzolamide/Timolol OPTH (NF) 10 ML BOT BOTH EYES SCH ×2 (09:37→22:34)
[2020-08-11] MEDS: Enoxaparin 30 MG/0.3 ML SYR SUBCUT SCH ×2 (09:37→22:33)
[2020-08-11] MEDS: Latanoprost 0.005% 2.5 ml BTL BOTH EYES SCH ×2 (09:37→22:34)
[2020-08-12] MEDS: Enoxaparin 30 MG/0.3 ML SYR SUBCUT SCH (08:27)
[2020-08-12] MEDS: Aspirin EC 81 mg TAB.EC (enteric coated) PO SCH (08:27)
[2020-08-12] MEDS: Latanoprost 0.005% 2.5 ml BTL BOTH EYES SCH (08:27)
[2020-08-12] MEDS: CMCS: Dorzolamide/Timolol OPTH (NF) 10 ML BOT BOTH EYES SCH (08:27)
[2020-08-12] MEDS ORDERED: Calcium Carb (TUMS) 500 mg CHEW TAB PO PRN (13:57)
[2020-08-12 19:36] VITALS: BP 119/74
== END 2020-08-12 16:30 | disposition home or self-care (01) | DRG 177 ==
LOC: ED 06:58 → MED 12:36
PROVIDERS: ADMIT Student in an Organized Health Care Education/Training Program; ATTEND Internal Medicine

== ENCOUNTER 2020-11-02 19:54 | Inpatient (IN) ==
[2020-11-02] MEDS ORDERED: NS 0.9% 1000 ml BAG 1,000 ML IV ONE (20:21)
[2020-11-02 20:40] LABS: ABS Eosinophils 0.3 10^3/ul (0-0.6); ABS Lymphocytes 1.6 10^3/ul (1.0-4.8); ABS Monocytes 0.4 10^3/ul (0-0.8); ABS Neutrophils 1.9 10^3/ul (1.5-7.7); Eosinophil % 6.5 %; Hematocrit 41 % (35-47); Hemoglobin 13.9 g/dL (12.0-16.0); Mean Corpuscular HGB Conc 34 g/dL (31-36); Mean Corpuscular Hemoglobin 29 pg (27-31); Mean Corpuscular Volume 87 fL (80-97); Mean Platelet Volume 7.7 fL (7.4-10.4); Platelet Count 186 10^3/uL (150-450); Red Blood Count 4.74 10^6 /uL (3.70-4.87); Red Cell Distribution Width 14 % (10-15); White Blood Count 4.2 10^3/uL (3.5-10.8)
[2020-11-02 20:59] LABS: ALT 42 U/L (7-52); AST 24 U/L (13-39); Albumin 4.3 g/dL (3.2-5.2); Albumin/Globulin Ratio 1.7 (1-3); Alkaline Phosphatase 82 U/L (34-104); Anion Gap 6 mmol/L (2-11); BUN/Creatinine Ratio 15.8 (8-20); Blood Urea Nitrogen 15 mg/dL (6-24); CO2 Carbon Dioxide 26 mmol/L (22-32); Calcium 9.6 mg/dL (8.6-10.3); Chloride 104 mmol/L (101-111); EGFR African American 69.2 (>60); EGFR Non-African American 57.2 (>60); Globulin 2.6 g/dL (2-4); Glucose 99 mg/dL (70-100); Magnesium 2.3 mg/dL (1.9-2.7); Potassium 4.7 mmol/L (3.5-5.0); Sodium 136 mmol/L (135-145); Total Protein 6.9 g/dL (6.4-8.9)
[2020-11-02] MEDS ORDERED: Ondansetron 4 mg VIAL 2 MG/ML 2 ml VIAL IV ONE (21:06)
[2020-11-02 21:11] LABS: Alcohol, S < 10 mg/dL (<10)
[2020-11-02 21:21] LABS: Urine Appearance Clear; Urine Bilirubin Negative (Negative); Urine Blood Negative (Negative); Urine Color Colorless; Urine Glucose Negative (Negative); Urine Ketones Negative (Negative); Urine Nitrite Negative (Negative); Urine Protein Negative (Negative); Urine Specific Gravity 1.003 (1.010-1.030); Urine Urobilinogen Negative (Negative)
[2020-11-02 21:26] LABS: TSH Ultra Thyroid Stim Horm 6.34 mcIU/mL (0.34-5.60)
[2020-11-03] MEDS ORDERED: Albuterol HFA INHALER 8 gm MDI INH PRN (01:09)
[2020-11-03] MEDS: Enoxaparin 40 MG/0.4 ML SYR SUBCUT SCH (02:23)
[2020-11-03 06:09] LABS: ABS Basophils 0.1 10^3/ul (0-0.2); ABS Eosinophils 0.3 10^3/ul (0-0.6); ABS Monocytes 0.4 10^3/ul (0-0.8); ABS Neutrophils 1.7 10^3/ul (1.5-7.7); Eosinophil % 6.2 %; Hematocrit 38 % (35-47); Lymphocyte % 44.2 %; Mean Corpuscular HGB Conc 34 g/dL (31-36); Mean Corpuscular Hemoglobin 29 pg (27-31); Mean Corpuscular Volume 86 fL (80-97); Mean Platelet Volume 7.8 fL (7.4-10.4); Platelet Count 178 10^3/uL (150-450); Red Blood Count 4.42 10^6 /uL (3.70-4.87); Red Cell Distribution Width 14 % (10-15); White Blood Count 4.5 10^3/uL (3.5-10.8)
[2020-11-03 06:21] LABS: BUN/Creatinine Ratio 17.9 (8-20); Calcium 8.7 mg/dL (8.6-10.3); EGFR African American 79.8 (>60); EGFR Non-African American 65.9 (>60); Potassium 4.3 mmol/L (3.5-5.0)
[2020-11-03] MEDS: Aspirin EC 81 mg TAB.EC (enteric coated) PO SCH (08:56)
[2020-11-03] MEDS: Latanoprost 0.005% 2.5 ml BTL BOTH EYES SCH ×2 (08:56→20:38)
[2020-11-04 05:38] LABS: ABS Basophils 0.1 10^3/ul (0-0.2); ABS Eosinophils 0.3 10^3/ul (0-0.6); ABS Monocytes 0.4 10^3/ul (0-0.8); ABS Neutrophils 2.1 10^3/ul (1.5-7.7); Eosinophil % 5.8 %; Hematocrit 38 % (35-47); Hemoglobin 12.9 g/dL (12.0-16.0); Lymphocyte % 41.3 %; Mean Corpuscular HGB Conc 34 g/dL (31-36); Mean Corpuscular Hemoglobin 29 pg (27-31); Mean Corpuscular Volume 86 fL (80-97); Mean Platelet Volume 7.4 fL (7.4-10.4); Nucleated Red Blood Cells % 0.1; Platelet Count 195 10^3/uL (150-450); Red Blood Count 4.46 10^6 /uL (3.70-4.87); Red Cell Distribution Width 14 % (10-15); White Blood Count 4.8 10^3/uL (3.5-10.8)
[2020-11-04 05:52] LABS: BUN/Creatinine Ratio 13.3 (8-20); Calcium 8.8 mg/dL (8.6-10.3); EGFR African American 73.7 (>60); EGFR Non-African American 60.9 (>60)
[2020-11-04] MEDS: Aspirin EC 81 mg TAB.EC (enteric coated) PO SCH (08:04)
[2020-11-04] MEDS: Latanoprost 0.005% 2.5 ml BTL BOTH EYES SCH ×2 (08:04→21:16)
[2020-11-04] MEDS: Enoxaparin 40 MG/0.4 ML SYR SUBCUT SCH (08:06)
[2020-11-04] MEDS ORDERED: Iohexol 350 (CONTRAST) 500 ML MDV IV ONE (16:44)
[2020-11-04 17:11] LABS: Free T4 0.71 ng/dL (0.61-1.12)
[2020-11-04] MEDS ORDERED: Senna TAB 8.6 mg TAB PO PRN (21:06)
[2020-11-05] MEDS: Enoxaparin 40 MG/0.4 ML SYR SUBCUT SCH (08:34)
[2020-11-05] MEDS: Latanoprost 0.005% 2.5 ml BTL BOTH EYES SCH ×2 (08:34→20:04)
[2020-11-05] MEDS: Aspirin EC 81 mg TAB.EC (enteric coated) PO SCH (08:37)
[2020-11-05] MEDS ORDERED: Magnesium Hydroxide LIQ 30 ML UDC ONE (09:36)
[2020-11-05] MEDS: Magnesium Hydroxide LIQ 30 ML UDC PO PRN ×2 (09:38→15:49)
[2020-11-06] MEDS: Aspirin EC 81 mg TAB.EC (enteric coated) PO SCH (09:43)
[2020-11-06] MEDS: Enoxaparin 40 MG/0.4 ML SYR SUBCUT SCH (09:45)
[2020-11-06] MEDS: Latanoprost 0.005% 2.5 ml BTL BOTH EYES SCH ×2 (09:48→21:29)
[2020-11-07] MEDS: Aspirin EC 81 mg TAB.EC (enteric coated) PO SCH (08:30)
[2020-11-07] MEDS: Latanoprost 0.005% 2.5 ml BTL BOTH EYES SCH ×2 (08:54→21:27)
[2020-11-07] MEDS: Enoxaparin 40 MG/0.4 ML SYR SUBCUT SCH (21:19)
[2020-11-08] MEDS: Latanoprost 0.005% 2.5 ml BTL BOTH EYES SCH ×2 (08:12→19:59)
[2020-11-08 14:40] LABS: ABS Eosinophils 0.2 10^3/ul (0-0.6); ABS Lymphocytes 2.1 10^3/ul (1.0-4.8); ABS Monocytes 0.4 10^3/ul (0-0.8); ABS Neutrophils 3.2 10^3/ul (1.5-7.7); Eosinophil % 3.1 %; Hematocrit 42 % (35-47); Hemoglobin 14.6 g/dL (12.0-16.0); Lymphocyte % 35.9 %; Mean Corpuscular HGB Conc 35 g/dL (31-36); Mean Corpuscular Hemoglobin 30 pg (27-31); Mean Corpuscular Volume 86 fL (80-97); Mean Platelet Volume 7.6 fL (7.4-10.4); Nucleated Red Blood Cells % 0.2; Platelet Count 287 10^3/uL (150-450); Red Cell Distribution Width 14 % (10-15); White Blood Count 5.9 10^3/uL (3.5-10.8)
[2020-11-08 15:10] LABS: BUN/Creatinine Ratio 11.9 (8-20); Calcium 9.3 mg/dL (8.6-10.3); EGFR African American 59.1 (>60); EGFR Non-African American 48.8 (>60); Potassium 4.5 mmol/L (3.5-5.0)
[2020-11-08] MEDS: Enoxaparin 40 MG/0.4 ML SYR SUBCUT SCH (19:58)
[2020-11-09] MEDS: Latanoprost 0.005% 2.5 ml BTL BOTH EYES SCH ×2 (09:35→20:03)
[2020-11-09 10:13] LABS: BUN/Creatinine Ratio 13.5 (8-20); Calcium 9.5 mg/dL (8.6-10.3); EGFR African American 74.6 (>60); EGFR Non-African American 61.7 (>60)
[2020-11-09] MEDS: Enoxaparin 40 MG/0.4 ML SYR SUBCUT SCH (20:03)
[2020-11-10] MEDS: Latanoprost 0.005% 2.5 ml BTL BOTH EYES SCH ×2 (09:39→21:39)
[2020-11-11] MEDS: Latanoprost 0.005% 2.5 ml BTL BOTH EYES SCH ×2 (09:49→20:37)
[2020-11-12] MEDS: Latanoprost 0.005% 2.5 ml BTL BOTH EYES SCH ×2 (07:41→20:23)
[2020-11-12 08:12] LABS: ABS Basophils 0.1 10^3/ul (0-0.2); ABS Eosinophils 0.1 10^3/ul (0-0.6); ABS Lymphocytes 2.2 10^3/ul (1.0-4.8); ABS Monocytes 0.3 10^3/ul (0-0.8); ABS Neutrophils 2.6 10^3/ul (1.5-7.7); Eosinophil % 2.7 %; Hematocrit 41 % (35-47); Lymphocyte % 41.3 %; Mean Corpuscular HGB Conc 34 g/dL (31-36); Mean Corpuscular Hemoglobin 30 pg (27-31); Mean Corpuscular Volume 87 fL (80-97); Mean Platelet Volume 8.3 fL (7.4-10.4); Nucleated Red Blood Cells % 0.4; Platelet Count 218 10^3/uL (150-450); Red Blood Count 4.74 10^6 /uL (3.70-4.87); Red Cell Distribution Width 14 % (10-15); White Blood Count 5.4 10^3/uL (3.5-10.8)
[2020-11-12 08:15] LABS: Calcium 9.5 mg/dL (8.6-10.3); EGFR African American 74.6 (>60); EGFR Non-African American 61.7 (>60); Magnesium 2.2 mg/dL (1.9-2.7); Potassium 4.7 mmol/L (3.5-5.0)
[2020-11-12 08:59] LABS: INR 1.08 (0.82-1.09)
[2020-11-12] MEDS: Al Hydrox/Mg Hydrox/Simet LIQ 30 ML UDC PO PRN (21:06)
[2020-11-13] MEDS: Latanoprost 0.005% 2.5 ml BTL BOTH EYES SCH (08:46)
[2020-11-13] MEDS ORDERED: Aspirin EC 81 mg TAB.EC (enteric coated) PO SCH (09:00)
[2020-11-13] MEDS: Al Hydrox/Mg Hydrox/Simet LIQ 30 ML UDC PO PRN (09:24)
[2020-11-13 15:23] VITALS: BP 114/53
== END 2020-11-13 13:55 | DRG 948 ==
LOC: ED 19:54 → MEDTELE 23:26
PROVIDERS: ADMIT Internal Medicine Interventional Cardiology; ATTEND Hospitalist

== ENCOUNTER 2022-04-28 09:16 | Inpatient (IN) ==
[~2022-04-28 09:16] MED LIST: Buffered Lidocaine 1% SYRIN 1 ml INTRADERM ONE; Famotidine IV 10 MG/ML 2 ml VIAL (20 mg) IV ONE; Lactated Ringers 1000 ml BAG 1,000 ML IV SCH
[2022-04-28] MEDS ORDERED: ceFAZolin 2 GM in NS PREMIX 2 GM/100 ML BAG IVPB ONE (09:29)
[2022-04-28] MEDS ORDERED: Famotidine IV 10 MG/ML 2 ml VIAL (20 mg) ONE (10:14)
[2022-04-28] MEDS ORDERED: Bupivacaine 0.25% w/EPI 10 ML SDV ONE (11:24)
[2022-04-28] MEDS ORDERED: Lidocaine 1% w EPI 1:200,000 SDV 30 ML VIAL ONE (11:25)
[2022-04-28] MEDS ORDERED: ceFAZolin VIAL VIAL ONE (11:25)
[2022-04-28] MEDS ORDERED: fentaNYL 100 mcg/2 ml 50 MCG/ML VIAL ONE (11:33)
[2022-04-28] MEDS ORDERED: Rocuronium 50 mg VIAL 10 mg/ml 5 ml VIAL (50 mg) ONE (11:34)
[2022-04-28] MEDS ORDERED: Propofol 10 MG/ML 20 ML BTL ONE (11:34)
[2022-04-28] MEDS ORDERED: Midazolam 2 mg/2 ml VIAL 1 mg/ml 2 ml VIAL (2 mg) ONE (11:34)
[2022-04-28] MEDS ORDERED: Lidocaine 2% PF 5 ML VIAL ONE (11:34)
[2022-04-28] MEDS ORDERED: Naloxone 0.4 mg VIAL 0.4 mg/ml 1 ml VIAL IV PRN (12:16)
[2022-04-28] MEDS ORDERED: fentaNYL 100 mcg/2 ml 50 MCG/ML VIAL IV PRN (12:16)
[2022-04-28] MEDS ORDERED: Ondansetron 4 mg VIAL 2 MG/ML 2 ml VIAL IV PRN (12:16)
[2022-04-28] MEDS ORDERED: Ondansetron 4 mg VIAL 2 MG/ML 2 ml VIAL ONE ×2 (12:47→13:05)
[2022-04-28] MEDS ORDERED: Latanoprost 0.005% 2.5 ml BTL BOTH EYES SCH (21:00)
[2022-04-29 05:22] LABS: ABS Basophils 0.1 10^3/ul (0-0.2); ABS Eosinophils 0.1 10^3/ul (0-0.6); ABS Lymphocytes 1.4 10^3/ul (1.0-4.8); ABS Monocytes 0.4 10^3/ul (0-0.8); ABS Neutrophils 3.4 10^3/ul (1.5-7.7); Eosinophil % 2.7 %; Hematocrit 37 % (35-47); Hemoglobin 13.3 g/dL (12.0-16.0); Lymphocyte % 26.2 %; Mean Corpuscular HGB Conc 36 g/dL (31-36); Mean Corpuscular Hemoglobin 31 pg (27-31); Mean Corpuscular Volume 86 fL (80-97); Mean Platelet Volume 8.1 fL (7.4-10.4); Platelet Count 171 10^3/uL (150-450); Red Blood Count 4.29 10^6 /uL (3.70-4.87); Red Cell Distribution Width 13 % (10-15); White Blood Count 5.4 10^3/uL (3.5-10.8)
[2022-04-29 05:47] LABS: Calcium 8.6 mg/dL (8.6-10.3); Potassium 4.2 mmol/L (3.5-5.0); eGFR CKD-EPI 72.1 (>60)
[2022-04-29] MEDS: Aspirin EC 81 mg TAB.EC (enteric coated) PO SCH (09:16)
[2022-04-29] MEDS: Latanoprost 0.005% 2.5 ml BTL BOTH EYES SCH (09:17)
[2022-04-29] MEDS ORDERED: Iohexol 350 (CONTRAST) 500 ML MDV IV ONE (13:13)
[2022-04-30] MEDS: Aspirin EC 81 mg TAB.EC (enteric coated) PO SCH (08:18)
[2022-04-30] MEDS: Latanoprost 0.005% 2.5 ml BTL BOTH EYES SCH (08:18)
[2022-05-01] MEDS: Aspirin EC 81 mg TAB.EC (enteric coated) PO SCH (10:18)
[2022-05-01] MEDS: Latanoprost 0.005% 2.5 ml BTL BOTH EYES SCH (10:21)
[2022-05-02] MEDS: Latanoprost 0.005% 2.5 ml BTL BOTH EYES SCH (11:04)
[2022-05-02] MEDS: Aspirin EC 81 mg TAB.EC (enteric coated) PO SCH (11:04)
[2022-05-02 12:20] VITALS: BP 115/57
== END 2022-05-02 13:25 | DRG 876 ==
LOC: OR 09:16 → MEDTELE 09:16 → SUATTDRO 04-30 18:40
PROVIDERS: ADMIT Internal Medicine; ATTEND Hospitalist